=== PATIENT | female | born 1960 | race Caucasian/White ===

== ENCOUNTER 2019-11-22 12:49 | Outpatient (CLI) | payer OTHER, SELFPAY ==
--- NOTE | ~2019-11-22 | XR_ITS ---
EXAMINATION: XR chest 2V EXAM DATE: 11/22/2019 13:11 INDICATION: Cough. TECHNIQUE: Frontal and lateral projections of the chest obtained and reviewed. There is no prior anderson dy for comparison. FINDINGS: The lungs are clear. There are no pleural effusions. The cardiomediastinal silhouette is within normal limits. There is no pneumothorax suspected. Dense material within 2 lower thoracic ve rtebral bodies (methylmethacrylate), and within the colon. IMPRESSION: No acute cardiopulmonary findings. Reviewed, dictated and finalized at location A. AL WORK CASE MANAGER
== END 2019-11-22 12:50 | disposition home or self-care (01) ==
LOC: ANHIMG 12:54
PROVIDERS: PCP Internal Medicine; Visit Provider Internal Medicine
DX: R05 Cough (principal)
CPT/HCPCS: 71046

== ENCOUNTER 2020-02-14 13:03 | Outpatient (CLI) | payer OTHER, SELFPAY ==
--- NOTE | ~2020-02-14 | XR_ITS ---
EXAMINATION: XR knee RT 3V DATE: 02/14/2020 13:25 INDICATION: Right knee pain. TECHNIQUE: 3 views of right knee were obtained. COMPARISON: None. FINDINGS: Bone alignment is normal. No fracture. There is mild tricompartmental osteoarthritis. No kn ee joint effusion. IMPRESSION: 1. Mild right knee osteoarthritis. Reviewed, dictated and finalized at location A.
== END 2020-02-14 13:04 | disposition home or self-care (01) ==
LOC: ANHIMG 13:07
PROVIDERS: PCP Internal Medicine; Visit Provider Internal Medicine
DX: S89.91XA Unspecified injury of right lower leg, initial encounter (principal); M17.11 Unilateral primary osteoarthritis, right knee
CPT/HCPCS: 73562

== ENCOUNTER → 2021-06-15 13:45 | Outpatient (CLI) | payer OTHER, SELFPAY ==
--- NOTE | ~2021-06-15 | MR_ITS ---
EXAMINATION: MR thoracic spine wo con EXAM DATE: 06/15/2021 14:41 INDICATION: M54.6 - Pain in thoracic spine. TECHNIQUE: Multi-sequential, multiplanar MR images of the thoracic spine were obtained without contra st. Sagittal T1, T2, T2 fat saturation, axial T2 weighted images reviewed. Correlation is made to [facility] x-ray 11/22/2019. FINDINGS: Mild compression fractures at T11 and T12, treated with methylmethacrylate injection. The v ertebral body marrow is otherwise normal in signal intensity. The vertebral bodies are aligned in the AP dimension. Mild thoracic disc disease and facet arthropathy. The spinal cord signal intensity and intrinsic morphology is normal. There is fluid within the esophagus probably refluxed from the stom ach. IMPRESSION: 1. Treated mild compression fractures T11, T12. 2. Mild thoracic spondylosis. Reviewed, dictated and finalized at location A.
== END ==
PROVIDERS: PCP Internal Medicine; Visit Provider Internal Medicine
DX: M47.814 Spondylosis without myelopathy or radiculopathy, thoracic region (principal); M48.54XA Collapsed vertebra, not elsewhere classified, thoracic region, initial encounter for fracture
CPT/HCPCS: 72146

== ENCOUNTER → 2022-01-09 06:56 | Outpatient (CLI) | payer OTHER, SELFPAY ==
--- NOTE | ~2022-01-09 | MR_ITS ---
EXAMINATION: MR scapwilliam RT wo con DATE: 01/09/2022 08:17 INDICATION: Chronic right scapular pain TECHNIQUE: Magnetic resonance imaging (MRI) of the right scapula was performed without intravenous co ntrast. Sequences included axial T1-weighted FSE, axial T2-weighted FS FSE, coronal T1-weighted FSE, coronal T2-weighted FS FSE, sagittal T1-weighted FSE and sagittal T2-weighted FS FSE. COMPARISON: None. FINDINGS: Mild upper thoracic levoscoliosis. Normal alignment at the right shoulder. Normal bone marrow signal throughout with no reactive edema, fracture or pathologic marrow replacing process. Mild acromioclavi cular osteoarthritis. Right glenohumeral joint is normal with normal glenoid labrum. Long head of the biceps tendon appears normal although sensitivity and specificity for assessment of the shoulder str uctures is decreased relative to a smaller field of view standard MRI of the shoulder. Mild thickenin g and increased signal consistent with tendinopathy at the conjoined portion of the supraspinatus and infraspinatus tendons. Musculature at the rotator cuff and shoulder girdle appears normal including in the medial infraspinatus immediately underlying the marker indicating the region of concern. No ab normal masses or fluid collections identified. No pathologically enlarged right axillary, supraclavic ular or subpectoral lymphadenopathy. No pleural effusion. IMPRESSION: 1. 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 2. Mild upper thoracic levoscoliosis. Reviewed, dictated and finalized at location B.
== END ==
PROVIDERS: PCP Internal Medicine
DX: M89.8X1 Other specified disorders of bone, shoulder (principal); G89.29 Other chronic pain
CPT/HCPCS: 73218

== ENCOUNTER → 2022-01-09 06:57 | Outpatient (CLI) | payer OTHER, SELFPAY ==
--- NOTE | ~2022-01-09 | MMUS_ITS ---
EXAMINATION: MM diagnostic june BI w orse, US breast RT limited HISTORY: Right breast pain TECHNIQUE: Additional 3-D tomosynthesis images of the right breast were performed and synthetic 2-D i mages were generated. CAD analysis was submitted and interpreted. High resolution Limited right breas t ultrasound was performed. COMPARISON: None BREAST PARENCHYMAL COMPOSITION: Breast composition is almost entirely fatty FINDINGS: MAMMOGRAPHIC FINDINGS: There are focal asymmetries in the subareolar location of the right breast without discrete mass, arc hitectural distortion or suspicious calcifications. ULTRASOUND: Limited right breast ultrasound: Normal heterogeneous echotexture without focal solid or cystic mass. IMPRESSION: 1. No evidence for malignancy in either breast. 2. Routine yearly screening mammogram and regular clinical breast examination are recommended. BI-RADS Category 1: Negative Reviewed, dictated and finalized at location A. IMPRESSION: 1. No evidence for malignancy in either breast. 2. Routine yearly screening mammogram and regular clinical breast examination a re recommended. BI-RADS Category 1: Negative
== END ==
PROVIDERS: PCP Internal Medicine; Visit Provider Internal Medicine
DX: N64.4 Mastodynia (principal)
CPT/HCPCS: 76642; 77062; 77066; G0279

== ENCOUNTER 2022-10-04 09:11 | Outpatient (CLI) | payer OTHER, SELFPAY ==
--- NOTE | 2022-10-04 | ECG_ITS ---
Measurements Intervals [place] Rate: 60 P: 27 AK: 183 QRS: 12 QRSD: 89 T: 31 QT: 401 QTc: 402 Interpretive Statements SINUS RHYTHM LOW QRS VOLTAGE NONSPECIFIC T-WAVE ABNORMALITY ABNORMAL ECG NO PREVIOUS ECG AVAILABLE FOR COMPARISON Electronically Signed On 10-04-2022 14:52:43 FOUNDRY METALLURGIST by Murphy Suero M.D.
[2022-10-04 09:56] LABS: Alanine Aminotransferase 32 U/L (6-35); Albumin Level 4.6 g/dL (3.5-5.1); Alkaline Phosphatase 74 U/L (38-126); Anion Gap 6 mmol/L (8-16); Aspartate Amino Transferase 29 U/L (14-36); Bilirubin,Total 0.8 mg/dL (0.2-1.3); Blood Urea Nitrogen 17 mg/dL (7-17); Calcium 9.1 mg/dL (8.4-10.2); Carbon Dioxide 32 mmol/L (22-30); Chloride 99 mmol/L (98-107); Cholesterol 159 mg/dL (0-200); Estimated Glomerular Filt Rate > 60; Glucose 117 mg/dL (65-110); HDL Direct 72 mg/dL; Potassium 4.1 mmol/L (3.4-5.0); Sodium 137 mmol/L (137-145); Triglycerides 115 mg/dL (<150)
[2022-10-04 10:07] LABS: LDL Cholesterol Direct 65 mg/dL
[2022-10-04 11:02] LABS: Hemoglobin A1C 5.8 % (<5.7)
[2022-10-04 11:06] LABS: Free T4 Free Thyroxine 0.94 ng/mL (0.78-2.19)
== END 2022-10-04 09:12 | disposition home or self-care (01) ==
LOC: ANHCARD 09:12
PROVIDERS: PCP Internal Medicine
DX: R94.6 Abnormal results of thyroid function studies (principal); Z13.1 Encounter for screening for diabetes mellitus; Z79.899 Other long term (current) drug therapy; I48.0 Paroxysmal atrial fibrillation; E78.2 Mixed hyperlipidemia; I10 Essential (primary) hypertension
CPT/HCPCS: 36415; 80053; 80061; 83036; 84439; 84443; 84481; 93005

== ENCOUNTER 2022-11-08 13:38 | Outpatient (CLI) | payer OTHER, SELFPAY ==
[2022-11-08 15:16] LABS: Free T4 Free Thyroxine 1.49 ng/mL (0.78-2.19)
== END 2022-11-08 13:39 | disposition home or self-care (01) ==
LOC: ANHLAB 13:39
PROVIDERS: PCP Internal Medicine; Visit Provider Internal Medicine
DX: E03.9 Hypothyroidism, unspecified (principal)
CPT/HCPCS: 36415; 84439; 84443

== ENCOUNTER 2023-09-16 15:37 | Outpatient (CLI) | payer OTHER, SELFPAY ==
--- NOTE | ~2023-09-16 | CT_ITS ---
EXAMINATION: CTA chest PE protocol DATE: 09/16/2023 16:58 INDICATION: OTHER FORMS OF DYSPNEA TECHNIQUE: Computed tomography angiography (CTA) of the chest was performed with 100 mL Omnipaque-350 intravenous contrast timed to evaluate the pulmonary arteries. Coronal maximum intensity projection 3D-reconstructions were created by the technologist. The dose-length product (DLP) was 568.53 mGy-cm. Automated exposure control and iterative reconstruction technique were employed. COMPARISON: X-ray chest 11/22/2019. FINDINGS: Lung parenchyma and airways: Clear. Minimal apical pleural scarring. Pleura: Unremarkable. Thoracic inlet, axillae and chest wall: Unremarkable. Thoracic aorta: Normal. Mediastinum: Moderate hiatal hernia. Heart and pericardium: Normal. Coronary artery calcifications: Absent. Upper abdomen: Partially visualized, likely simple exophytic right upper pole cyst. Hyperdense subcen timeter left upper pole hemorrhagic or proteinaceous renal cyst. Bones: No acute osseous finding. Vertebroplasty cement at T11 and T12. Pulmonary arteries: Study quality: Adequate. No pulmonary emboli detected. IMPRESSION: No CT evidence of acute pulmonary embolus. No acute intrathoracic process detected. Reviewed, dictated and finalized at location K. ECTION LIEUTENANT IMPRESSION: No CT evidence of acute pulmonary embolus. No acute intrathoracic process detec arianna.
[2023-09-16 16:43] LABS: Estimated Glomerular Filt Rate > 60
== END 2023-09-16 15:38 | disposition home or self-care (01) ==
PROVIDERS: PCP Internal Medicine; Visit Provider Internal Medicine
DX: R06.09 Other forms of dyspnea (principal)
CPT/HCPCS: 71275; Q9967

== ENCOUNTER 2023-09-17 13:00 | Outpatient (CLI) | payer OTHER, SELFPAY ==
--- NOTE | ~2023-09-17 | MR_ITS ---
EXAMINATION: MR brain IAC wo/w con DATE: 09/17/2023 14:39 INDICATION: Dizziness and giddiness. Headache. Tinnitus. TECHNIQUE: Magnetic resonance imaging (MRI) of the brain, brainstem, and internal auditory canals was performed without and with 18 mL MultiHance intravenous contrast. COMPARISON: None. FINDINGS: There are scattered areas of nonspecific increased T2-weighted signal intensity in the cere bral white matter, which is within normal limits for the patient's age. There is no intracranial hemo rrhage, acute infarction, or abnormal intracranial mass lesion. The ventricles are normal in size. Th e internal auditory canals, inner ears, tympanic cavities, and mastoid air cells are normal. There is mild mucosal thickening in the paranasal sinuses. The orbits are normal. IMPRESSION: 1. Normal brain. Reviewed, dictated and finalized at location A. H INSPECTOR IMPRESSION: 1. Normal brain.
== END 2023-09-17 13:01 | disposition home or self-care (01) ==
PROVIDERS: PCP Internal Medicine; Visit Provider Internal Medicine
DX: R42 Dizziness and giddiness (principal); Z74.09 Other reduced mobility; H93.19 Tinnitus, unspecified ear
CPT/HCPCS: 70553; A9577

== ENCOUNTER 2024-05-22 07:35 | Outpatient (CLI) | payer MEDICARE, SELFPAY ==
[2024-05-22 08:24] LABS: Alanine Aminotransferase 36 U/L (6-35); Albumin Level 4.4 g/dL (3.5-5.1); Alkaline Phosphatase 70 U/L (38-126); Anion Gap 8 mmol/L (4-12); Aspartate Amino Transferase 35 U/L (14-36); Bilirubin,Total 0.9 mg/dL (0.2-1.3); Blood Urea Nitrogen 18 mg/dL (7-17); Calcium 9.4 mg/dL (8.4-10.2); Carbon Dioxide 30 mmol/L (22-30); Chloride 96 mmol/L (98-107); Cholesterol 145 mg/dL (0-200); Estimated Glomerular Filt Rate > 60; Glucose 116 mg/dL (65-110); HDL Direct 68 mg/dL; Sodium 134 mmol/L (137-145); Triglycerides 143 mg/dL (<150)
[2024-05-22 08:33] LABS: Hemoglobin A1C 5.8 % (<5.7)
[2024-05-22 08:35] LABS: LDL Cholesterol Direct 54 mg/dL
[2024-05-22 08:38] LABS: Free T4 Free Thyroxine 1.48 ng/mL (0.78-2.19)
== END 2024-05-22 07:36 | disposition home or self-care (01) ==
PROVIDERS: PCP Internal Medicine; Visit Provider Internal Medicine
DX: E03.9 Hypothyroidism, unspecified (principal); E78.2 Mixed hyperlipidemia; I10 Essential (primary) hypertension; R73.03 Prediabetes; Z79.899 Other long term (current) drug therapy
CPT/HCPCS: 36415; 80053; 80061; 83036; 84439; 84443

== ENCOUNTER 2024-11-24 09:10 | Outpatient (CLI) | payer MEDICARE, SELFPAY ==
--- OUTSIDE RECORDS SUMMARY | 2024-11-24 09:18 | XMS_ITS | Clinical Summary ---
Author Organization [facility] Address [address] [place] [address] Care Team Providers Care Lace Mender Name Role Phone Ford Mar MD Primary Care Provider Zenaida Curry Unavailable Unavailable Murphy Nguyen MD Unavailable [phone] Allergies No known active allergies Medications cholecalciferol (VITAMIN D3) 1,000 unit capsuleIndicatio ns:Vitamin D Deficiency Take 2 capsules (2,000 Units total) by mouth 2 (two) times a day 03/23/20 Active Additional Information Patient taking differently: 4,000 UnitsoralEvery morning, Indications: Vitamin D Deficiency, Informant: Self, Reported on 01/23/2024 rosuvastatin (CRESTOR) 10 mg tabletIndication s:hyperlipidemia Take 1 tablet (10 mg total) by mouth nightly CRUSH medication for 2 weeks. 03/09/20 Active Additional Information Patient taking differently:10 mg oral Nightly,(No instructions reported), Indications: hyperlipidemia, Informant: Self, Reported on 01/23/2024 multivitamin tabletIndication s:supplement Take 1 tablet by mouth 3 (three) times a week 2-3 times per week 03/23/20 Active Additional Information Patient taking differently:1 tablet oral4 times weekly, (No instructions reported), Indications: supplement, Informant: Self, Reported on 01/23/[address] (PROTONIX) 40 mg EC tabletIndication s:Treatment of Non-Bleeding Gastric Disorder Take 1 tablet (40 mg total) by mouth daily 42 tablet 12/07/19 20 029 Active Additional Information Patient taking differently:40 mg oral2 times daily, Indications: Treatment of Non-Bleeding Gastric Disorder, Informant: Self, Reported on 01/23/2024 docusate sodium (COLACE) 100 mg capsuleIndicatio ns:constipation Take 1 capsule (100 mg total) by mouth daily Active aspirin 325 mg tabletIndication s:Myocardial Reinfarction Prevention Take 1 tablet (325 mg total) by mouth every morning Active acetaminophen (TYLENOL) 500 mg tablet Take 2 tablets (1,000 mg total) by mouth every 6 (six) hours as needed for pain Active Synthroid 112 mcg tabletIndication s:hypothyroidism Take 1 tablet (112 mcg total) by mouth patent examiner before breakfast 12/21/19 23 Active clobetasoL (TEMOVATE) 0.05 % ointment Apply fingertip amount to vulva nightly. 45 g 12/23/19 24 Active Additional Information Patient taking differently: Nightly PRN, Apply fingertip amount to vulva nightly., Informant: Self, Reported on 01/23/2024 calcium carb/D3/magnesiu m/zinc (calcium carb-D3-mag [id number]) [phone] [id number]-[id number]-mg tabletIndication s:Vitamin Deficiency Take 1 tablet by mouth nightly Active folic acid (FOLVITE) 400 mcg tablet Take 1 tablet (400 mcg total) by mouth nightly Active PSYLLIUM HUSK ORALIndications: constipation Take by mouth daily Active losartan (COZAAR) 50 mg tablet Take 1 tablet (50 mg total) by mouth daily 90 tablet 3 03/26/20 24 025 Active carvediloL (COREG) 6.25 mg tablet Take 1 tablet (6.25 mg total) by mouth 2 (two) times a day 180 tablet 3 05/24/20 24 Active isosorbide mononitrate ER (IMDUR) 30 mg 24 hr tablet Take 1 tablet (30 mg total) by mouth daily 90 tablet 3 05/24/20 24 Active hydroCHLOROthiaz jose (HYDRODIURIL) 25 mg tablet Take 1 tablet (25 mg total) by mouth daily 90 tablet 3 05/24/20 24 Active nitroglycerin (NITROSTAT) 0.[address] 1 tablet (0.4 mg total) under the tongue every 5 (five) minutes as needed for chest pain May repeat dose q 5 min, up to 3 doses total 100 tablet 11 05/24/20 24 Active ezetimibe (ZETIA) 10 mg tablet Take 1 tablet (10 mg total) by mouth daily 90 tablet 3 05/28/20 24 Active Active Problems Patient Care Coordination No te Formatting of this note migh t be different from the original. This is a 57 year old female who has been experiencing dysphagia. She underwent a motility and pH study on 01/12/2018. Her pH study was normal. Her motility study demonstrated normal LES basal pressures. The post swallow residual pressures were elevated which can suggest a structural process at the GE junction. She underwent an upper endoscopy on 02/12/2018 to further evaluate her dysphagia. The endoscopy demonstrated a 2 cm hiatal hernia. The esophageal mucosa was normal. There was a benign-appearing intrinsic mild ring measuring 1.8 cm that was found 35 cm from the incisors. There was a hypertonic and puckered lower esophageal sphincter. An endo FLIP catheter was placed and fulfilled the criteria for outflow obstruction. Biopsies of the esophagus demonstrated reflux esophagitis with intestinal metaplasia. There was no dysplasia. She underwent a barium swallow study on 04/24/2018 that demonstrated a small hiatal hernia with gastroesophageal reflux as well as esophageal dysmotility. Problem Noted Date Diagnosed Date Decreased peripheral vision, bilateral 4 Dermatochalasis of both upper eyelids 01/19/2024 Assessment & Plan (01/28/2024 4:28 PM CDT): Bilateral dermatochalasis with symptomatic visual obstruction. Risks, benefits and alternatives were discussed. Risks of surgery included but were not limited to pain, infection, bleeding, scarring, eyelid asymmetry, need for additional procedures, anesthetic morbidity. Following this discussion, the patient wishes to proceed with bilateral upper eyelid blepharoplasty. We will schedule this in the near future. Urinary urgency 06/25/2023 Thoracic spine pain 12/07/2021 Obesity 12/03/2021 Coronary artery disease 05/14/2021 High risk medication use 10/11/2020 Atrial tachycardia 06/07/2020 Achalasia 02/04/2019 Overview (02/04/2019): Added automatically from request for surgery [id number] Left hip pain 08/31/2018 Chronic bilateral low back pain without sciatica 08/31/2018 NSTEMI (non-ST elevated myocardial infarction) ( [facility]) 07/11/2018 Assessment & Plan (07/14/2018 8:41 AM CDT): The etiology of her chest pain and troponin elevation are currently unclear right now. She has a high and currently stable troponin elevation with elevated NT proBNP. She has no signs of heart failure. Her story is concerning for PE, although she notably has a negative D-dimer. The pleuritic chest pain is concerning for an inflammatory process and could easily include pericarditis, pericardial effusion, or myocarditis. She also has a mild leukocytosis. This may be an extremely atypical presentation of her esophageal spasms. She will likely need a cardiac cath for ischemic evaluation pending the work up. Other more rare etiologies will be considered pending further w/u - etiology more likely demand ischemia vs NSTEMI given troponin curve, negative ESR/CRP - Trops: 1.41-->1.46-->1.20-->0.87 - [facility] 07/13: Mild plaques in RCA, nonlaminar flow. Bridging LAD. No flow impingement. - s/p ticagrelor loading 180 mg - d/c ticagrelor 90 BID for treatment of NSTEMI - d/c heparin gtt - LV ventriculogram WNL. nml EF, no WMA - cards c/s, appreciate recs - [facility] today - ESR, CRP WNL - ASA 81-> 325 home dose - JENNIFER Davis. Esophageal spasm 07/11/2018 Assessment & Plan (07/11/2018 9:57 PM CDT): She has previously undergone botox injections which. Plans for possible endoscoping myotomy. - continue home pantoprozole, verapamil, nortriptyline, gabapentin, viscous lidocaine - continue baclofen PRN for spasms Dyslipidemia 05/11/2018 Assessment & Plan (07/14/2018 8:42 AM CDT): - dose reduce ASA to 81 while on antiplatelet.--> ASA 325. - continue home zetia Hiatal hernia without gangrene and obstruction 0 04/27/2018 Overview (04/27/2018): 2 cm hiatal hernia which is demonstrated on barium swallow with leg raise and also noted on endoscopy. Not associated with substantial reflux. Tinnitus of both ears 04/27/2018 Overview (04/27/2018): Evaluated in December 2017 Other dysphagia 04/20/2018 Trochanteric bursitis 03/23/2018 Other chronic pain 03/23/2018 Bilateral hip pain 03/23/2018 Sacroiliitis 03/23/2018 Sensorineural hearing loss (SNHL) of both ears 0 12/16/2017 Hearing loss 2017 Hot flashes due to menopause 10/19/2015 Overview (01/10/2017): Hot flashes, menopausal Viral upper respiratory tract infection 10/19/19 16 Overview (01/10/2017): Viral upper respiratory illness Obstructive sleep apnea syndrome 07/27/2015 Overview (01/10/2017): Obstructive sleep apnea Assessment & Plan (07/11/2018 10:02 PM CDT): Patient is noncompliant with her home CPAP - ANTONY precautions Snoring 07/12/2015 Overview (01/10/2017): Snoring Persistent insomnia 07/12/2015 Overview (01/10/2017): Persistent disorder of initiating or maintaining sleep Paroxysmal atrial fibrillation (CMS/HCC) 015 Overview (01/10/2017): Paroxysmal atrial fibrillation Assessment & Plan (07/12/2018 1:48 PM CDT): She has had recalcitrant SVTs - continue home flecainide 100 AM; 50 PM - telemetry - NSR overnight - K>4 Mg>2 Urge incontinence of urine 03/13/2015 Post-menopausal osteoporosis 03/13/2015 Osteopenia 11/11/2013 Heart attack Overview (08/31/2018): 07/11/18 no stents or bypass Resolved Problems Problem Noted Date Diagnosed Date Resolved Date Treatment given 10/19/2015 04/27/2018 Overview (01/10/2017): Insufficient treatment with nasal CPAP Essential hypertension 07/12/201505/27 Overview (01/10/2017): Essential hypertension Assessment & Plan (07/12/2018 1:49 PM CDT): Home SBPs in 160. - continue home HCTZ 12.5 Encounters Date Type Department Care Team Description 11/09/2024 Telephone [facility] [address] [place] [address] [place] [address] Celestine Escobar MD coreg dosing 10/22/2024 Telephone [facility] [address] [place] [address] Bryant Arnold MD from Last 3 Months Immunizations Immunization Administration Dates Next Due Influenza, Quadrivalent, Spl it, Preservative Free, Intramuscular 07/11/2018,11/16/2016 Pfizer SARS-CoV-2 Monovalent Vaccination (12+ Yrs) PURPLE 07/07/2021 Surgical History Surgery Date Site/Laterality Comments OTHER SURGICAL HISTORY 10/06/1992 - 10/05/1993 D & C WRIST SURGERY 10/06/2009 - 10/05/2010 Left wrist surgery ESOPHAGOSCOPY ESOPHAGOGASTRODUODENOSCOPY 02/12/2018;2013 COLONOSCOPY 10/06/2013 - 10/05/2014 CARDIAC CATHETERIZATION 07/13/2018 TOTAL ABDOMINAL HYSTERECTOMY 10/06/1998 - 10/05/1999 Hysterectomy, total LAPAROSCOPIC HELLER MYOTOMY 10/06/2018 - 10/05/2019 ABLATION 10/06/2020 - 10/05/2021 Medical History Medical History Date Comments Hypertension Hypertension Arthritis Atrial fibrillation (CMS/HCC) (HCC) Heart attack (HCC) 07/11/[address] ents or bypass Sleep apnea HLD (hyperlipidemia) Achalasia Esophageal spasm Difficult intravenous access Chronic pain disorder Family History Medical History Relation Name Comments Depression Brother Depression; Crohn's disease Daughter 1 Crohn's dise ase; Rheum arthritis Daughter 2 Rheumatoid a rthritis; Coronary artery disease Father Daisy nary artery disease; Diabetes type II Father Diabetes me llitus type 2; Hypertension Father Hypertension; Stroke Father Family history of cerebrovascular accident (CVA) - (Added by TW Conv) Coronary artery disease Mother Daisy nary artery disease; Hypertension Mother Hypertension; Lymphoma Sister Lymphoma; Ovarian cancer Sister Diabetes type I Son Diabetes typ e I Anesthesia problems Neg Hx Relation Name Status Comments Brother Daughter 1 Daughter 2 Father Mother Sister Son Social History Tobacco Use Types Packs/Day Years Used Date Smoking Tobacco: Some Days Cigarettes 0.1 10 Started: 10/06/1998; Last attempted to quit: 2008 Cigars Smokeless Tobacco: Never Tobacco Cessation:Ready to Q uit: Not Asked; Counseling Given: Not Answered Comments:PUFF CIGAR OCC-maybe once a week Alcohol Use Standard Drinks/Week Comments Yes 14 (1 standard drink = 0.6 oz pu re alcohol) AUDIT-C Answer Date Recorded Q1: How often do you have a drink containing alcohol? 4 or more times a week 02/11/2024 Q2: How many drinks containi ng alcohol do you have on a typical day when you are drinking? 1 or 2 Q3: How often do you have si x or more drinks on one occasion? Never 02/11/2024 Personal Safety Answer Date Recorded Have you ever been in or are you currently in a harmful physical or emotional relationship or is someone making you feel afraid or unsafe? Denies 02/11/2024 Comments No Sex and Gender Information Value Date Recorded Sex Assigned at Not on file Legal Sex Female 11:58 PM STUDIO DATA ANALYST Gender Identity Not on file Sexual Orientation Not on file Obstetrics History Para Term AB IAB SAB Ectopic Multiple Livin g Live Births 4 3 3 1 1 2 2 Date Outcome GA Total Labor Labor/2nd/3rd Weight Sex Type Anes PTL Kennedi A1 A5 Name Clin 1987 Term M Vag-S pont Living 1990 Term F Vag-S pont Complications:None 1992 Term F Vag-S pont Living Complications:None Last Filed Vital Signs Vital Sign Reading Time Taken Comments Blood Pressure 137/88 05/24/2024 9:32 AM CDT Pulse 60 05/24/2024 9:32 AM CDT Temperature 36.4 C (97.5 F) 02/11/2024 1:12 PM CDT Respiratory Rate 28 02/11/2024 1:42 PM CDT Oxygen Saturation 97% 05/24/2024 9:32 AM CDT Inhaled Oxygen Concentration - - Weight 89.8 kg (198 lb) 05/24/2024 9:32 AM CDT Height 170.2 cm (5' 7 ) 05/24/2024 9:32 AM CDT Body Mass Index 31.01 05/24/2024 9:32 AM CDT Plan of Treatment Health Maintenance Due Date Last Done Comments Depression Screening 1960 Hepatitis C Screening 1960 DTaP/Tdap/Td Vaccine (1 - Tdap) 1969 Hepatitis B Screening 1976 Pneumococcal vaccine 65+ (1 of 2 - PCV) 1977 Zoster Vaccine (1 of 2) 2008 Colon Cancer Screening-Colonoscopy 10/25/2023 10/25/2013 Covid-19 Vaccine (5 - 2023-2 5 season) 2024 03/26/2022, 07/07/2021, 11/24/2020, Additional history exists Influenza Vaccine (#1) 2024 07/11/2018, 2016 Well Visit 65+ 09/01/2024 09/01/2023, 08/07, 10/28/2018 Breast Cancer Screening-Mammogram 12/09/2024 2023, 07/27/2020, 09/25/2018, Additional history exists Fall Risk Assessment 02/10/2025 02/11/2024 Osteoporosis Screening-Bone Density Scan 12/09/2025 2023, 08/06/2016, 11/17/2013 Colon Cancer Screening-CT Colonography Discontinued 10/25/2013 Colon Cancer Screening-DNA Stool Discontinued 10/25/19 14 Colon Cancer Screening-FIT Discontinued 10/25/2013 Colon Cancer Screening-Sigmoidoscopy Discontinued 10/25/2013 Goals Goal Patient Goal Type Associated Problems Recent Progress Patient-Stated? Author CCM Chronic Pain Care Plan Chronic Care Management Worsening( 8:03 AM STUDIO DATA ANALYST) Jessie Santana, RN Note: Problem: Chronic Pain Goals: 1. Minimize further functional decline 2. Maximize quality of life 3. Control pain Strategies: - Activity/exercise program recommendation - Conservative stepwise pain medicine strategy with multi-disciplinary approach - Recommend healthy lifestyle strategies and compensatory methods as needed Medical Devices Implanted Type Area Transmission Tester Device Identifier Shelf Expiration Date Model / Serial / Lot Screw Left: Wrist [employer] [id number] System 6-12fr Mvp Venous Closure Vascade - [id number] Implanted:Qty: 1 on 05/24/2021 by Keshav Morgan MD PhD at [facility] [employer] 02/08/2023 800-612C-[id number] [id number] / / [id number] [id number] [employer] [id number] System 6-12fr Mvp Venous Closure Vascade - [id number] Implanted:Qty: 1 on 05/24/2021 by Keshav Morgan MD PhD at [facility] [employer] 01/31/2023 800-612C-1 [id number] / / [id number] [id number] [employer] [id number] System 6-12fr Mvp Venous Closure Vascade - [id number] Implanted:Qty: 1 on 05/24/2021 by Keshav Morgan MD PhD at [facility] [employer] 01/31/2023 800-612C-1 [id number] / / [id number] 5C [employer] [id number] Device Closure Vascade Od5 Fr Femoral Artery - [id number] Implanted:Qty: 1 on 05/24/2021 by Keshav Morgan MD PhD at [facility] [employer] 02/21/2023 [id number] / / [id number] Procedures Procedure Name Priority Date/Time Associated Diagnosis Comments SCREENING MAMMOGRAM BILATERAL W RAPHAEL Schedule Routine, Read Routine (OP Routine) 2023 10:41 AM STUDIO DATA ANALYST Encounter for screening mammogram for malignant neoplasm of breast DEXA AXIAL SKELETON BONE DENSITY 1 OR MORE SITES Schedule Routine, Read Routine (OP Routine) 2023 10:27 AM STUDIO DATA ANALYST Osteoporosis, unspecified osteoporosis type, unspecified pathological fracture presence COLONOSCOPY REPORT 10/25/2013 from Last 3 Months or Most Recently Relevant to Health Maintenance Results * SCREENING MAMMOGRAM BILATERAL W RAPHAEL (2023 10:41 AM STUDIO DATA ANALYST) Anatomical Region Laterality Modality Breast Bilateral Mammography Impressions 2023 10:46 AM STUDIO DATA ANALYST BI-RADS ATLAS category (overall): 1 - Negative There is no mammographic evidence of malignancy. A 1 year screening mammogram is recommended. The patient has been or will be contacted. We recommend annual screening mammography for women at average risk of breast cancer beginning at age 40, based on guidelines of the [employer] (ACR Practice Parameter for the Performance of Screening and Diagnostic Mammography) and [employer]. For women with and elevated risk of breast cancer, please refer to the ACR Practice Parameter for specific screening recommendations. The patient will be entered into a reminder system with a target due date of 1 year for her next screening exam. Narrative 2023 10:46 AM STUDIO DATA ANALYST SCREENING MAMMOGRAM BILATERAL W RAPHAEL: 12/10/23 The study was acquired using full field digital technology and interpreted from soft copy. 2D digital mammographic views, as well as 3D digital tomosynthesis were performed in the CC and MLO projections. CLINICAL: Encounter for screening mammogram for malignant neoplasm of breast. No relevant medical history has been documented for this patient. No known family history of breast cancer. COMPARISONS: 07/27/2020 Screening Mammogram Bilateral W Raphael 09/25/2018 Screening Mammogram Bilateral W Raphael 08/06/2016 Screening Mammogram BREAST TISSUE: The breasts have scattered areas of fibroglandular density. FINDINGS: No suspicious masses, suspicious calcifications, or other suspicious findings are seen within either breast. There has been no suspicious change. us Susanna Abimbola Marr MD IMG MAMMO PROC EDURES Final Result * Dexa Axial Skeleton Bone Density 1 Or 2 Site (2023 10:27 AM STUDIO DATA ANALYST) Anatomical Region Laterality Modality Body N/A Mammography 2023 8:27 PM STUDIO DATA ANALYST Narrative 2023 8:28 PM STUDIO DATA ANALYST EXAM DESCRIPTION: DEXA AXIAL SKELETON BONE DENSITY 1 OR MORE SITES REASON FOR STUDY: 62 y/o year old F with given history of: Osteoporosis Postmenopausal Transmission Tester/Model: [employer] A (S/N [id number]) CLINICAL INFORMATION: Current height: 67 inches Maximum height: 68 inches Weight: 200 pounds Risk factors: Postmenopausal, prior hip/vertebral fracture, adult fracture, smoking history COMPARISON: None available FINDINGS: AP LUMBAR SPINE L1-L4: Total BMD is 0.838 g/cm2 T-score is -1.9 LEFT HIP: Total BMD is 0.852 g/cm2 T-score is -0.7 Femoral neck BMD is 0.625 g/cm2 T-score is -2.0 FRAX: 10 year risk for a major osteoporotic fracture is 17 %, 10 year risk for a hip fracture is 3.9 % IMPRESSION: Low Bone Mass. REFERENCE: Bone mineral density: T-Score: Normal (T-score above or = -1.0) Low bone mass (T-score between -1.0 and -2.5) replaces the previously used term osteopenia Osteoporosis (T-score = or below -2.5) Z-Score: Within the expected range for age (Z-score above -2.0) Below the expected range for age (Z-score is -2.0 or below) Please see below follow up recommendations. Medical evaluation for secondary causes of low bone mineral density may be appropriate. FRAX is a World Health Organization validated fracture risk assessment tool that calculates a person's 10 year probability of a major osteoporosis related fracture and hip fracture. According to the National Osteoporosis Foundation guidelines, postmenopausal women and men age 50 or older with low bone mass and a 10 year probability of a major osteoporosis related fracture = or greater than 20% or a 10 year probability of a hip fracture = or greater than 3% should be considered for pharmacological treatment for the prevention of osteoporosis. For further information, including treatment recommendations, please refer to the 2019 ISCD Official Positions (http://www.iscd.org) and the NOF's Clinician's Guide to Prevention and Treatment of Osteoporosis (http://www.nof.org/professionals/clinical-guidelines) THIS IS AN ELECTRONICALLY VERIFIED FINAL REPORT 2023 8:28 PM - Electronically signed by Murphy Sanchez M.D. MF: DONTA Report ID: [id number] Reading Location: [address] Note Murphy Sanchez MD - 2023 EXAM DESCRIPTION: DEXA AXIAL SKELETON BONE DENSITY 1 OR MORE SITES REASON FOR STUDY: 62 y/o year old F with given history of:Osteoporosis Postmenopausal Transmission Tester/Model: [employer] A (S/N [id number]) CLINICAL INFORMATION: Current height: 67 inches Maximum height: 68 inches Weight: 200 pounds Risk factors: Postmenopausal, prior hip/vertebral fracture, adultfracture, smoking history COMPARISON: None available FINDINGS: AP LUMBAR SPINE L1-L4: Total BMD is 0.838 g/cm2 T-score is -1.9 LEFT HIP: Total BMD is 0.852 g/cm2 T-score is -0.7 Femoral neck BMD is 0.625 g/cm2 T-score is -2.0 FRAX: 10 year risk for a major osteoporotic fracture is 17 %, 10 year risk for ahip fracture is 3.9 % IMPRESSION: Low Bone Mass. REFERENCE: Bone mineral density: T-Score: Normal (T-score above or = -1.0) Low bone mass (T-score between -1.0 and -2.5) replaces thepreviously used term osteopenia Osteoporosis (T-score = or below -2.5) Z-Score: Within the expected range for age (Z-score above -2.0) Below the expected range for age (Z-score is -2.0 or below) Please see below follow up recommendations. Medical evaluation forsecondary causes of low bone mineral density may be appropriate. FRAX is a World Health Organization validated fracture risk assessmenttool that calculates a person's 10 year probability of a major osteoporosisrelated fracture and hip fracture. According to the National OsteoporosisFoundation guidelines, postmenopausal women and men age 50 or older with low bonemass and a 10 year probability of a major osteoporosis related fracture = or greater than 20% or a 10 year probability of a hip fracture = or greaterthan 3% should be considered for pharmacological treatment for the preventionof osteoporosis. For further information, including treatment recommendations, please referto the 2019 ISCD Official Positions (http://www.iscd.org) and the NOF's Clinician's Guide to Prevention and Treatment of Osteoporosis (http://www.nof.org/professionals/clinical-guidelines) THIS IS AN ELECTRONICALLY VERIFIED FINAL REPORT 2023 8:28 PM - Electronically signed by Murphy Sanchez M.D. MF: DONTA Report ID: [id number] Reading Location: [place] [address] Susannaab Marr MD IMG DXA PROCED URES Final Result * COLONOSCOPY REPORT (10/25/2013) Anatomical Region Laterality Modality Other Narrative 10/25/2013 Ordered by an unspecified provider. Historical Provider GI PROCEDURE ORDERABLES F inal Result from Last 3 Months or Most Recently Relevant to Health Maintenance Insurance MEDICARE [facility] H[facility]/PPO Address: [address] [address] [place] [address] [facility] CHOICE PLUS [facility]/PPO Address: [address] [address] [place] [address] MEDICARE [facility] Advance Directives For more information, please contact: [phone] * Full Code (Latest Code Status on File) Date Activated Date Inactivated Comments 12/07/2019 7:31 AM 12/07/2019 1:28 PM * Full Code Date Activated Date Inactivated Comments 03/08/2019 6:40 PM 03/09/2019 10:19 PM * Full Code Date Activated Date Inactivated Comments 07/11/2018 8:02 PM 07/14/2018 4:16 PM Healthcare Agents on File Name Relationship Healthcare Agent [facility] Communication Brock Estrada Spouse Health Care Agent Care Teams Lace Mender Relationship Specialty Start Date End Date Ford Mar MD [address] [employer] [facility] [place], [place] [address] PCP - General 01/03/17 Zenaida Curry Physical Therapist Physical Therapy 03/17/18 Murphy Nguyen MD Anesthesiologist Pain Management 03/17/18
--- OUTSIDE RECORDS SUMMARY | 2024-11-24 09:18 | XMS_ITS | Referral Summary ---
Author Organization [facility] Address [address] [place] [address] Care Team Providers Care Cloth Checker Name Role Phone Ford Mar MD Primary Care Provider [phone] Zenaida Curry Unavailable Unavailable Murphy Nguyen MD Unavailable [phone] Encounters Date Type Department Care Team Description 11/09/2024 Telephone [facility] [address] [facility] Advanced Medicine 8th [place] [address] [place] [address] Celestine Escobar MD coreg dosing 10/22/2024 Telephone [facility] Ophthalmology [address] [place] [address] Bryant Arnold MD from Last 3 Months Allergies No known active allergies Medications cholecalciferol [...] a week 2-3 times per week 03/23/20 19 Active Additional Information Patient taking differently:1 tablet [...] 1 tablet (112 mcg total) by mouth manufacturing engineer paint before breakfast 12/21/19 23 Active clobetasoL (TEMOVATE) 0.05 % ointment Apply fingertip amount to vulva nightly. 45 g 12/23/19 24 Active Additional Information Patient taking differently: Nightly PRN, Apply fingertip amount to vulva nightly., Informant: Self, Reported on 01/23/2024 calcium carb/D3/magnesiu m/zinc (calcium carb-D3-mag puu46-kbev) [phone] gk-byom-kl-mg tabletIndication s:Vitamin Deficiency Take 1 tablet by [...] times a day 180 tablet 3 05/24/20 Active isosorbide mononitrate ER (IMDUR) 30 mg [...] up to 3 doses total 100 tablet 05/24/20 Active ezetimibe (ZETIA) 10 mg tablet Take [...] (02/04/2019): Added automatically from request for surgery Left hip pain 08/31/2018 Chronic bilateral low back pain without sciatica 08/31/2018 NSTEMI (non-ST elevated myocardial infarction) ( [facility]) 07/11/2018 Assessment & Plan (07/14/2018 8:41 AM [...] curve, negative ESR/CRP - Trops: 1.41-->1.46-->1.20-->0.87 - [facility] 07/13: Mild plaques in RCA, nonlaminar flow. Bridging LAD. No flow impingement. - s/p ticagrelor loading 180 mg - d/c ticagrelor 90 BID for treatment of NSTEMI - d/c heparin gtt - LV ventriculogram WNL. nml EF, no WMA - cards c/s, appreciate recs - [facility] today - ESR, CRP WNL - [...] in 160. - continue home HCTZ 12.5 Immunizations Immunization Administration Dates Next Due Influenza, Quadrivalent, Spl it, Preservative Free, Intramuscular 07/11/2018,11/16/2016 Pfizer SARS-CoV-2 Monovalent Vaccination (12+ Yrs) PURPLE 07/07/2021 Social History Tobacco Use Types Packs/Day Years [...] on file Legal Sex Female 11:58 PM CMO Gender Identity Not on file Sexual Orientation Not on file Last Filed Vital Signs Vital Sign Reading [...] 05/24/2024 9:32 AM CDT Plan of Treatment Not on file Goals Goal Patient Goal Type Associated Problems Recent Progress Patient-Stated? Author CCM Chronic Pain Care Plan Chronic Care Management Worsening( 8:03 AM CMO) Jessie Santana, RN Note: Problem: Chronic Pain Goals: 1. Minimize further functional decline 2. Maximize quality of life 3. Control pain Strategies: - Activity/exercise program recommendation - Conservative stepwise pain medicine strategy with multi-disciplinary approach - Recommend healthy lifestyle strategies and compensatory methods as needed Medical Devices Implanted Type Area Zinc Furnace Charger Device Identifier Shelf Expiration Date Model / Serial / Lot Screw Left: Wrist [employer] [id number] System 6-12fr Mvp Venous Closure Vascade - [id number] Implanted:Qty: 1 on 05/24/2021 by Keshav Morgan MD PhD at [facility] [employer] 02/08/2023 800-612C-1 [id number] / / [id number] [employer] [id number] System 6-12fr Mvp Venous Closure Vascade - [id number] Implanted:Qty: 1 on 05/24/2021 by Keshav Morgan MD PhD at [facility] [employer] [facility] 01/31/2023 800-612C-1 [id number] / / [id number] [employer] [id number] System 6-12fr Mvp Venous Closure Vascade - [id number] Implanted:Qty: 1 on 05/24/2021 [facility] 01/31/2023 800-612C-1 [id number] / / [id number] [employer] [id number] Device Closure Vascade Od5 Fr Femoral Artery - [id number] Implanted:Qty: 1 on 05/24/2021 by [facility]eshav [facility] 02/21/2023 [id number] / / [id number] Procedures Procedure Name Priority Date/Time Associated Diagnosis Comments SCREENING MAMMOGRAM BILATERAL W RAPHAEL Schedule Routine, Read Routine (OP Routine) 2023 10:41 AM CMO Encounter for screening mammogram for malignant neoplasm of breast DEXA AXIAL SKELETON BONE DENSITY 1 OR MORE SITES Schedule Routine, Read Routine (OP Routine) 2023 10:27 AM CMO Osteoporosis, unspecified osteoporosis type, unspecified pathological fracture presence COLONOSCOPY REPORT 10/25/2013 from Last 3 Months or Most Recently Relevant to Health Maintenance Results * SCREENING MAMMOGRAM BILATERAL W RAPHAEL (2023 10:41 AM CMO) Anatomical Region Laterality Modality Breast Bilateral Mammography Impressions 2023 10:46 AM CMO BI-RADS ATLAS category (overall): 1 - Negative There is no mammographic evidence of malignancy. A 1 year screening mammogram is recommended. The patient has been or will be contacted. We recommend annual screening mammography for women at average risk of breast cancer beginning at age 40, based on guidelines of the [place] [employer] (ACR Practice Parameter for the Performance of Screening and Diagnostic Mammography) and [place] [employer]. For women with and elevated risk of breast cancer, please refer to the ACR Practice Parameter for specific screening recommendations. The patient will be entered into a reminder system with a target due date of 1 year for her next screening exam. Narrative 2023 10:46 AM CMO SCREENING MAMMOGRAM BILATERAL W RAPHAEL: 12/10/23 The [...] suspicious change. us Susanna Abimbola Marr MD [facility] [place] ED[place] Final Result * Dexa Axial Skeleton Bone Density 1 Or 2 Site (2023 10:27 AM CMO) Anatomical Region Laterality Modality Body N/A Mammography 2023 8:27 PM CMO Narrative 2023 8:28 PM CMO EXAM DESCRIPTION: DEXA AXIAL SKELETON BONE DENSITY 1 OR MORE SITES REASON FOR STUDY: 62 y/o year old F with given history of: Osteoporosis Postmenopausal Zinc Furnace Charger/Model: Referrizer A (S/N [id number]) CLINICAL INFORMATION: Current height: 67 inches Maximum [...] Murphy Sanchez M.D. MF: DONTA Report ID: [id number] Reading Location: [id number] Procedure Note Murphy Sanchez MD - 2023 EXAM DESCRIPTION: DEXA AXIAL SKELETON BONE DENSITY 1 OR MORE SITES REASON FOR STUDY: 62 y/o year old F with given history of:Osteoporosis Postmenopausal Zinc Furnace Charger/Model: Referrizer A (S/N [id number]) CLINICAL INFORMATION: Current height: 67 inches Maximum [...] Murphy Sanchez M.D. MF: DONTA Report ID: [id number] Reading Location: [place] [address] us Susanna Abimbola Marr MD IMG DXA PROCED URES Final Result * COLONOSCOPY REPORT (10/25/2013) Anatomical Region Laterality Modality Other Narrative 10/25/2013 Ordered by an unspecified provider. us Historical Provider GI PROCEDURE ORDERABLES F inal Result from Last 3 Months or Most Recently Relevant to Health Maintenance Insurance MEDICARE [facility] [address] [place] [id number] [facility] CHOICE PLUS MEDICARE [facility] Advance Directives For more information, please contact: [phone] * Full Code (Latest Code Status on File) Date Activated Date Inactivated Comments 12/07/2019 7:31 AM 12/07/2019 1:28 PM * Full Code Date Activated Date Inactivated Comments 03/08/2019 6:40 PM 03/09/2019 10:19 PM * Full Code Date Activated Date Inactivated Comments 07/11/2018 8:02 PM 07/14/2018 4:16 PM Healthcare Agents on File Name Relationship Healthcare Agent Relationshi p Communication Brock Levine Spouse Health Care Agent Care Teams Cloth Checker Relationship Specialty Start Date End Date Ford Mar MD [address] [place] [address] PCP - General 01/03/17 Zenaida Curry Physical Therapist Physical Therapy 03/17/18 Murphy Nguyen MD Anesthesiologist Pain Management 03/17/18
--- OUTSIDE RECORDS SUMMARY | 2024-11-24 09:18 | XMS_ITS | Encounter Summary ---
Author Organization [facility] Healthcare Address [address] [place] [address] Care Team Providers Care Shoe Maker Name Role Phone Ford Mar MD Primary Care Provider [phone] Zenaida Curry Unavailable Unavailable Murphy Nguyen MD Unavailable [phone] Encounter Details Date Type Department Care Team (Late st Contact Info) Description 03/09/2019 Documentation [facility] Case Management [address] [place] [id number] Yohana Avitia RN Social History Tobacco Use Types Packs/Day Years Used Date Smoking Tobacco: Former Cigarettes 0.3 10 1 999 - 2009 Smokeless Tobacco: Never Alcohol Use Standard Drinks/Week Comments Yes 14 (1 standard drink = 0.6 oz pu re alcohol) Comments No Sex and Gender Information Value Date Recorded Sex Assigned at Not on file Legal Sex Female 11:58 PM PHYSICAL THERAPY AIDES TEACHER Gender Identity Not on file Sexual Orientation Not on file documented as of this encounter Miscellaneous Notes * Plan of Care - Yohana Avitia RN - 03/09/2019 1:14 PM CDT Attempted to interview x2 off the floor. CM will continue to follow. Add 03/09/19 documented in this encounter Plan of Treatment Not on file documented as of this encounter Visit Diagnoses Not on filedocumented in this encounter Additional Health Concerns Infection Onset Date Last Indicated Resolved Time COVID: Suspected 05/05/2020 05/05/2020 05/07/2020 5:03 AM CDT Respiratory Infection ([place]), contact + droplet Comment:Automatically added due to negative COVID-19 result. 05/07/2020 05/07/2020 05/21/2020 3:0 5 AM CDT COVID: Suspected 09/11/2023 09/11/2023 09/11/2023 12:05 PM PHYSICAL THERAPY AIDES TEACHER documented as of this encounter Care Teams Shoe Maker Relationship Specialty Start Date End Date Ford Mar MD [address] [place] [address] PCP - General 01/03/17 Zenaida Curry Physical Therapist Physical Therapy 03/17/18 Murphy Nguyen MD Anesthesiologist Pain Management 03/17/18 documented as of this encounter
--- OUTSIDE RECORDS SUMMARY | 2024-11-24 09:18 | XMS_ITS | Encounter Summary ---
Author Organization [facility] Address [address] [place] [address] Phone Care Team Providers Care Painting Manager Name Role Phone Ford Mar MD Primary Care Provider [phone] Zenaida Curry Unavailable Unavailable Murphy Nguyen MD Unavailable [phone] Encounter Details Date Type Department Care Team (Latest Contact Info) Description 10/04/2022 Orders Only [facility] Scanning, Provider Social History Tobacco Use Types Packs/Day Years Used Date Smoking Tobacco: Some Days Cigarettes 0.1 10 Started: 10/06/1998; Last attempted to quit: 2008 Cigars Smokeless Tobacco: Never Comments:PUFF CIGAR OCC-mayb e once a week Alcohol Use Standard Drinks/Week Comments Yes 14 (1 standard drink = 0.6 oz pu re alcohol) AUDIT-C Answer Date Recorded Q1: How often do you have a drink containing alc ohol? 2-3 times a week 12/07/2021 Q2: How many drinks containi ng alcohol do you have on a typical day when you are drinking? 3 or 4 12/07/2021 Q3: How often do you have si x or more drinks on one occasion? Less than monthly 12/07/2021 Comments No Sex and Gender Information Value Date Recorded Sex Assigned at Not on file Legal Sex Female 11:58 PM FELT CUTTING MACHINE OPERATOR Gender Identity Not on file Sexual Orientation Not on file documented as of this encounter Plan of Treatment Not on file documented as of this encounter Goals Goal Patient Goal Type Associated Problems Recent Progress Patient-Stated? Author CCM Chronic Pain Care Plan Chronic Care Management Worsening( 8:03 AM FELT CUTTING MACHINE OPERATOR) Jessie Santana RN Note: Problem: Chronic Pain Goals: 1. Minimize further functional decline 2. Maximize quality of life 3. Control pain Strategies: - Activity/exercise program recommendation - Conservative stepwise pain medicine strategy with multi-disciplinary approach - Recommend healthy lifestyle strategies and compensatory methods as needed documented as of this encounter Procedures Procedure Name Priority Date/Time Associated Diagnosis Comments CARDIOLOGY DOCUMENT SCAN 10/04/2022 documented in this encounter Results * CARDIOLOGY DOCUMENT SCAN (10/04/2022) Anatomical Region Laterality Modality Other us Provider Scanning [facility] PROCEDURES Final Result documented in this encounter Visit Diagnoses Not on filedocumented in this encounter Additional Health Concerns Infection Onset Date Last Indicated Resolved Time COVID: Suspected 09/11/2023 09/11/2023 09/11/2023 12:05 PM FELT CUTTING MACHINE OPERATOR documented as of this encounter Care Teams Painting Manager Relationship Specialty Start Date End Date Ford Mar MD [address] [facility] [address] [place] [address] PCP - General 01/03/17 Zenaida Curry Physical Therapist Physical Therapy 03/17/18 Murphy Nguyen MD Anesthesiologist Pain Management 03/17/18 documented as of this encounter
--- OUTSIDE RECORDS SUMMARY | 2024-11-24 09:18 | XMS_ITS | Encounter Summary ---
Author Organization [facility] Healthcare Address [address] [place] [address] Care Team Providers Care Architectural Engineering Teacher Name Role Phone Ford Mar MD Primary Care Provider [phone] Zenaida Curry Unavailable Unavailable Murphy Nguyen MD Unavailable [phone] Reason for Visit * Reason Onset Date Comments mri order 01/02/2022 Encounter Details Date Type Department Care Team (Late st Contact Info) Description 01/02/2022 Telephone [facility] [address] [facility] Advanced Medicine [address] [place] [address] Amelia Winkler MD [address] [place] [address] mri order Social History Tobacco Use Types Packs/Day Years [...] on file Legal Sex Female 11:58 PM QUALITY CONTROL SPECIALIST Gender Identity Not on file Sexual Orientation Not on file documented as of this encounter Plan of Treatment Not on file documented as of this encounter Goals Goal Patient Goal Type Associated Problems Recent Progress Patient-Stated? Author CCM Chronic Pain Care Plan Chronic Care Management Worsening( 8:03 AM QUALITY CONTROL SPECIALIST) No Jessie Javier RN Note: Problem: Chronic Pain Goals: 1. Minimize further functional decline 2. Maximize quality of life 3. Control pain Strategies: - Activity/exercise program recommendation - Conservative stepwise pain medicine strategy with multi-disciplinary approach - Recommend healthy lifestyle strategies and compensatory methods as needed documented as of this encounter Visit Diagnoses Not on filedocumented in this encounter Additional Health Concerns Infection Onset Date Last Indicated Resolved Time COVID: Suspected 09/11/2023 09/11/2023 09/11/2023 12:05 PM QUALITY CONTROL SPECIALIST documented as of this encounter Care Teams Architectural Engineering Teacher Relationship Specialty Start Date End Date Ford Mar MD [address] [facility] [address] [place] [address] PCP - General 01/03/17 Zenaida Curry Physical Therapist Physical Therapy 03/17/18 Murphy Nguyen MD Anesthesiologist Pain Management 03/17/18 documented as of this encounter
--- OUTSIDE RECORDS SUMMARY | 2024-11-24 09:18 | XMS_ITS | Encounter Summary ---
Author Organization [facility] Address [address] [place] [address] Phone Care Team Providers Care Strategic Insights Lead Name Role Phone Ford Mar MD Primary Care Provider Zenaida Curry Unavailable Unavailable Murphy Nguyen MD Unavailable [phone] Encounter Details Date Type Department Care Team (Latest Contact Info) Description 01/09/2022 Orders Only [facility] Scanning, Provider Social [...] on file Legal Sex Female 11:58 PM PLASTIC INJECTION MOLD MAKER Gender Identity Not on file Sexual Orientation Not on file documented as of this encounter Plan of Treatment Not on file documented as of this encounter Goals Goal Patient Goal Type Associated Problems Recent Progress Patient-Stated? Author CCM Chronic Pain Care Plan Chronic Care Management Worsening( 8:03 AM PLASTIC INJECTION MOLD MAKER) Jessie Santana RN Note: Problem: Chronic Pain Goals: 1. Minimize further functional decline 2. Maximize quality of life 3. Control pain Strategies: - Activity/exercise program recommendation - Conservative stepwise pain medicine strategy with multi-disciplinary approach - Recommend healthy lifestyle strategies and compensatory methods as needed documented as of this encounter Procedures Procedure Name Priority Date/Time Associated Diagnosis Comments SCAN - LABS 01/09/2022 documented in this encounter Results * SCAN - LABS (01/09/2022) us Provider Scanning Final Result documented in this encounter Visit Diagnoses Not on filedocumented in this encounter Additional Health Concerns Infection Onset Date Last Indicated Resolved Time COVID: Suspected 09/11/2023 09/11/2023 09/11/2023 12:05 PM PLASTIC INJECTION MOLD MAKER documented as of this encounter Care Teams Strategic Insights Lead Relationship Specialty Start Date End Date Ford Mar MD [address] [place] [address] PCP - General 01/03/17 Zenaida Curry Physical Therapist Physical Therapy 03/17/18 Murphy Nguyen MD Anesthesiologist Pain Management 03/17/18 documented as of this encounter
--- OUTSIDE RECORDS SUMMARY | 2024-11-24 09:18 | XMS_ITS | Encounter Summary ---
Author Organization [facility] Address [address] [place] [address] Phone Care Team Providers Care Ecmo Specialist Name Role Phone Ford Mar MD Primary Care Provider [phone] Zenaida Curry Unavailable Unavailable Murphy Nguyen MD Unavailable [phone] Encounter Details Date Type Department Care Team (Late st Contact Info) Description 01/06/2024 Orders Only [facility] Ophthalmology [address] [facility] 6th [place] [address] Bryant Arnold MD [address] [facility] [address] [place] [address] Ptosis of eyelid, unspecified laterality (Primary Dx) Social History Tobacco Use Types Packs/Day Years [...] alcohol? 4 or more times a week 09/01/2023 Q2: How many drinks containi ng alcohol do you have on a typical day when you are drinking? 1 or 2 11/27/202 3 Q3: How often do you have si x or more drinks on one occasion? Never 09/01/2023 Personal Safety Answer Date Recorded Have you ever been in or are you currently in a harmful physical or emotional relationship or is someone making you feel afraid or unsafe? Denies 09/11/2023 Comments No Sex and Gender Information Value Date Recorded Sex Assigned at Not on file Legal Sex Female 11:58 PM ARCHITECTURE PROFESSOR Gender Identity Not on file Sexual Orientation Not on file documented as of this encounter Plan of Treatment Not on file documented as of this encounter Goals Goal Patient Goal Type Associated Problems Recent Progress Patient-Stated? Author CCM Chronic Pain Care Plan Chronic Care Management Worsening( 8:03 AM ARCHITECTURE PROFESSOR) No Jessie Javier RN Note: Problem: Chronic Pain Goals: 1. Minimize further functional decline 2. Maximize quality of life 3. Control pain Strategies: - Activity/exercise program recommendation - Conservative stepwise pain medicine strategy with multi-disciplinary approach - Recommend healthy lifestyle strategies and compensatory methods as needed documented as of this encounter Procedures Procedure Name Priority Date/Time Associated Diagnosis Comments GVF LIMITED/PTOSIS - OU - BOTH EYES Routine 01/06/2024 11:35 AM CDT Ptosis of eyelid, unspecified laterality documented in this encounter Results * GVF Limited/Ptosis - OU - Both Eyes (01/06/2024 11:35 AM CDT) Anatomical Region Laterality Modality Head Visual Field Narrative 01/28/2024 4:26 PM CDT Right Eye Fixation was good. Cooperation was good. Reliability was good. Left Eye Fixation was good. Cooperation was good. Reliability was good. Notes Findings: Right eye (OD): Untaped superior meridian at 16 degrees and taped superior meridian at 41 degrees. Left eye (OS): Untaped superior meridian at 17 degrees and taped superior meridian at 46 degrees. Impression: Significant improvement in superior visual field with elevation bilaterally. Bryant Arnold MD OPH VISUAL FIELD Final Result documented in this encounter Visit Diagnoses Diagnosis Ptosis of eyelid, unspecified laterality- Primary documented in this encounter Care Teams Ecmo Specialist Relationship Specialty Start Date End Date Ford Mar MD [address] [facility] [address] [place] [address] PCP - General 01/03/17 Zenaida Curry Physical Therapist Physical Therapy 03/17/18 Murphy Nguyen MD Anesthesiologist Pain Management 03/17/18 documented as of this encounter
--- OUTSIDE RECORDS SUMMARY | 2024-11-24 09:18 | XMS_ITS | Encounter Summary ---
Author Organization [facility] Address [address] [place] [address] Phone Care Team Providers Care Community Service Worker Name Role Phone Ford Mar MD Primary Care Provider [phone] Zenaida Curry Unavailable Unavailable Murphy Nguyen MD Unavailable [phone] Encounter Details Date Type Department Care Team (Latest Contact Info) Description 04/05/2022 Orders Only [facility] Scanning, Provider Social [...] on file Legal Sex Female 11:58 PM WEATHER CLERK Gender Identity Not on file Sexual Orientation Not on file documented as of this encounter Plan of Treatment Not on file documented as of this encounter Goals Goal Patient Goal Type Associated Problems Recent Progress Patient-Stated? Author CCM Chronic Pain Care Plan Chronic Care Management Worsening( 8:03 AM WEATHER CLERK) Jessie Santana RN Note: Problem: Chronic Pain Goals: 1. Minimize further functional decline 2. Maximize quality of life 3. Control pain Strategies: - Activity/exercise program recommendation - Conservative stepwise pain medicine strategy with multi-disciplinary approach - Recommend healthy lifestyle strategies and compensatory methods as needed documented as of this encounter Procedures Procedure Name Priority Date/Time Associated Diagnosis Comments SCAN - LABS 04/05/2022 documented in this encounter Results * SCAN - LABS (04/05/2022) us Provider Scanning Final Result documented in this encounter Visit Diagnoses Not on filedocumented in this encounter Additional Health Concerns Infection Onset Date Last Indicated Resolved Time COVID: Suspected 09/11/2023 09/11/2023 09/11/2023 12:05 PM WEATHER CLERK documented as of this encounter Care Teams Community Service Worker Relationship Specialty Start Date End Date Ford Mar MD [address] [place] [address] PCP - General 01/03/17 Zenaida Curry Physical Therapist Physical Therapy 03/17/18 Murphy Nguyen MD Anesthesiologist Pain Management 03/17/18 documented as of this encounter
[2024-11-24 11:17] LABS: Alanine Aminotransferase 34 U/L (6-35); Albumin Level 4.3 g/dL (3.5-5.1); Alkaline Phosphatase 81 U/L (38-126); Anion Gap 8 mmol/L (4-12); Aspartate Amino Transferase 30 U/L (14-36); Bilirubin,Total 0.7 mg/dL (0.2-1.3); Blood Urea Nitrogen 12 mg/dL (7-17); Calcium 9.3 mg/dL (8.4-10.2); Carbon Dioxide 30 mmol/L (22-30); Chloride 99 mmol/L (98-107); Cholesterol 123 mg/dL (0-200); Estimated Glomerular Filt Rate > 60; Glucose 110 mg/dL (65-110); HDL Direct 56 mg/dL; Potassium 4.5 mmol/L (3.4-5.0); Sodium 137 mmol/L (137-145); Triglycerides 186 mg/dL (<150)
[2024-11-24 11:29] LABS: LDL Cholesterol Direct 49 mg/dL
[2024-11-24 11:55] LABS: Free T4 Free Thyroxine 1.34 ng/dL (0.78-2.19)
[2024-11-24 13:13] LABS: Hemoglobin A1C 5.8 % (<5.7)
== END 2024-11-24 09:11 | disposition home or self-care (01) ==
PROVIDERS: PCP Internal Medicine; Referring Provider Internal Medicine Cardiovascular Disease; Visit Provider Internal Medicine
DX: R73.03 Prediabetes (principal); E03.9 Hypothyroidism, unspecified; I10 Essential (primary) hypertension; E78.2 Mixed hyperlipidemia
CPT/HCPCS: 36415; 80053; 80061; 83036; 84439; 84443

== ENCOUNTER 2025-01-14 08:15 | Outpatient (CLI) | payer MEDICARE, SELFPAY ==
--- OUTSIDE RECORDS SUMMARY | 2025-01-14 08:26 | XMS_ITS | Encounter Summary ---
Author Organization [facility] Address [address] [place] [address] Phone Care Team Providers Care Property Loss Insurance Claim Adjuster Name Role Phone Ford Mar MD Primary Care Provider [phone] Zenaida Curry Unavailable Unavailable Murphy Nguyen MD Unavailable [phone] Encounter Details Date Type Department Care Team (Latest Contact Info) Description 10/04/2022 Orders Only [facility] Scanning, Provider Social History Tobacco Use [...] on file Legal Sex Female 11:58 PM ARMHOLE RAISER LOCKSTITCH Gender Identity Not on file Sexual Orientation Not on file documented as of this encounter Plan of Treatment Not on file documented as of this encounter Goals Goal Patient Goal Type Associated Problems Recent Progress Patient-Stated? Author CCM Chronic Pain Care Plan Chronic Care Management Worsening( 8:03 AM ARMHOLE RAISER LOCKSTITCH) Jessie Santana RN Note: Problem: Chronic Pain [...] COVID: Suspected 09/11/2023 09/11/2023 09/11/2023 12:05 PM ARMHOLE RAISER LOCKSTITCH documented as of this encounter Care Teams Property Loss Insurance Claim Adjuster Relationship Specialty Start Date End Date Ford Mar MD [address] [facility] [facility] [place] [id number] PCP - General 01/03/17 Zenaida Curry Physical Therapist Physical Therapy 03/17/18 Murphy Nguyen MD Anesthesiologist Pain Management 03/17/18 documented as of this encounter
--- OUTSIDE RECORDS SUMMARY | 2025-01-14 08:26 | XMS_ITS | Encounter Summary ---
Author Organization [facility] Address [address] [place] [address] Phone Care Team Providers Care Custom Studio Coordinator Name Role Phone Ford Mar MD Primary Care Provider [phone] Zenaida Curry Unavailable Unavailable Murphy Nguyen MD Unavailable Encounter Details Date Type Department Care Team (Latest Contact Info) Description 01/09/2022 Orders Only [facility] Scanning, Provider [...] on file Legal Sex Female 11:58 PM MID LEVEL PRACTITIONER Gender Identity Not on file Sexual Orientation Not on file documented as of this encounter Plan of Treatment Not on file documented as of this encounter Goals Goal Patient Goal Type Associated Problems Recent Progress Patient-Stated? Author CCM Chronic Pain Care Plan Chronic Care Management Worsening( 8:03 AM MID LEVEL PRACTITIONER) Jessie Santana RN Note: Problem: Chronic Pain [...] COVID: Suspected 09/11/2023 09/11/2023 09/11/2023 12:05 PM MID LEVEL PRACTITIONER documented as of this encounter Care Teams Custom Studio Coordinator Relationship Specialty Start Date End Date Ford Mar MD [address] [place] [address] PCP - General 01/03/17 Zenaida Curry Physical Therapist Physical Therapy 03/17/18 Murphy Nguyen MD Anesthesiologist Pain Management 03/17/18 documented as of this encounter
--- OUTSIDE RECORDS SUMMARY | 2025-01-14 08:26 | XMS_ITS | Encounter Summary ---
Author Organization [facility] Address [address] [place] [address] Care Team Providers Care Car Groomer Name Role Phone Ford Mar MD Primary Care Provider [phone] Zenaida Curry Unavailable Unavailable Murphy Nguyen MD Unavailable [phone] Encounter Details Date Type Department Care Team (Late st Contact Info) Description 03/09/2019 Documentation [facility] Case Management [address] [place] [address] Yohana Avitia RN Social History Tobacco Use Types Packs/Day Years Used Date Smoking Tobacco: Former Cigarettes 0.3 10 1 999 - 2008 Smokeless Tobacco: Never Alcohol Use Standard Drinks/Week Comments Yes 14 (1 standard drink = 0.6 oz pu re alcohol) Comments No Sex and Gender Information Value Date Recorded Sex Assigned at Not on file Legal Sex Female 11:58 PM ERP DEVELOPER Gender Identity Not on file Sexual Orientation [...] COVID: Suspected 09/11/2023 09/11/2023 09/11/2023 12:05 PM ERP DEVELOPER documented as of this encounter Care Teams Car Groomer Relationship Specialty Start Date End Date Ford Mar MD [address] [place] [address] PCP - General 01/03/17 Zenaida Curry Physical Therapist Physical Therapy 03/17/18 Murphy Nguyen MD Anesthesiologist Pain Management 03/17/18 documented as of this encounter
--- OUTSIDE RECORDS SUMMARY | 2025-01-14 08:26 | XMS_ITS | Encounter Summary ---
Author Organization [facility] Address [address] [place] [address] Phone Care Team Providers Care Manager Transition Name Role Phone Ford Mar MD Primary Care Provider [phone] Zenaida Curry Unavailable Unavailable Murphy Nguyen MD Unavailable [phone] Encounter Details Date Type Department Care Team (Late st Contact Info) Description 01/06/2024 Orders Only [facility] Ophthalmology [address] 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 Author CCM Chronic Pain Care Plan Chronic Care Management Worsening( 8:03 AM ASSISTANT COUNTY ATTORNEY) No Jessie Javier RN Note: Problem: Chronic [...] in superior visual field with elevation bilaterally. us Bryant Arnold MD OPHTH VISUAL FIELD Final Result documented in this encounter Visit Diagnoses Diagnosis Ptosis of eyelid, unspecified laterality- Primary documented in this encounter Care Teams Manager Transition Relationship Specialty Start Date End Date Ford Mar MD [address] [facility] [address] [place] [address] PCP - General 01/03/17 Zenaida Curry Physical Therapist Physical Therapy 03/17/18 Murphy Nguyen MD Anesthesiologist Pain Management 03/17/18 documented as of this encounter
--- OUTSIDE RECORDS SUMMARY | 2025-01-14 08:26 | XMS_ITS | Clinical Summary ---
Author Organization [facility] Address [address] [place] [address] Care Team Providers Care Medical Instrument Technician Name Role Phone Ford Mar MD Primary Care Provider [phone] Zenaida Curry Unavailable Unavailable Murphy Nguyen MD Unavailable [phone] Allergies No known active allergies Medications cholecalciferol (VITAMIN D3) 1,000 unit capsuleIndicatio ns:Vitamin D Deficiency Take 2 capsules (2,000 Units total) by mouth 2 (two) times a day 03/23/20 Active Additional Information Patient taking differently: 4,000 UnitsoralEvery morning, Indications: Vitamin D Deficiency, Informant: Self, Reported on 01/12/2025 rosuvastatin (CRESTOR) 10 mg tabletIndication s:hyperlipidemia Take 1 tablet (10 mg total) by mouth nightly CRUSH medication for 2 weeks. 03/09/20 Active Additional Information Patient taking differently:10 mg oral Nightly,(No instructions reported), Indications: hyperlipidemia, Informant: Self, Reported on 01/12/2025 multivitamin tabletIndication s:supplement Take 1 tablet by mouth 3 (three) times a week 2-3 times per week 03/23/20 Active Additional Information Patient taking differently:1 tablet oral4 times weekly, (No instructions reported), Indications: supplement, Informant: Self, Reported on 01/12/[address] (PROTONIX) 40 mg EC tabletIndication s:Treatment of Non-Bleeding Gastric Disorder Take 1 tablet (40 mg total) by mouth daily 42 tablet 12/07/19 20 029 Active Additional Information Patient taking differently:40 mg oral2 times daily, Indications: Treatment of Non-Bleeding Gastric Disorder, Informant: Self, Reported on 01/12/2025 docusate sodium (COLACE) 100 mg capsuleIndicatio ns:constipation [...] 1 tablet (112 mcg total) by mouth board runner before breakfast 12/21/19 23 Active clobetasoL (TEMOVATE) 0.05 % ointment Apply fingertip amount to vulva nightly. 45 g 12/23/19 24 Active Additional Information Patient taking differently: Nightly PRN, Apply fingertip amount to vulva nightly., Informant: Self, Reported on 01/23/2024 calcium carb/D3/magnesiu m/zinc (calcium carb-D3-mag img24-nejq) [phone] ee-mqqn-qp-mg tabletIndication s:Vitamin Deficiency Take 1 tablet by mouth nightly Active folic acid (FOLVITE) 400 mcg tablet Take 1 tablet (400 mcg total) by mouth nightly Active PSYLLIUM HUSK ORALIndications: constipation Take by mouth daily Active carvediloL (COREG) 6.25 mg tablet Take 1 tablet (6.25 mg total) by mouth 2 (two) times a day 180 tablet 3 05/24/20 24 Active nitroglycerin (NITROSTAT) [...] daily 90 tablet 3 05/28/20 24 Active polyethylene glycol (GoLYTELY) 236-22.74-6.74 -5.86 gram solution Follow [facility] prep instructions vs bottle instructions 4000 mL 12/07/19 25 Active hydroCHLOROthiaz jose (HYDRODIURIL) 25 mg tablet Take 1 tablet (25 mg total) by mouth daily 90 tablet 1 12/16/19 25 Active isosorbide mononitrate ER (IMDUR) 30 mg 24 hr tablet Take 1 tablet (30 mg total) by mouth daily 90 tablet 1 12/16/19 25 Active losartan (COZAAR) 50 mg tablet Take 1 tablet (50 mg total) by mouth daily 90 tablet 3 12/30/19 25 026 Active losartan (COZAAR) 50 mg tablet Take 1 tablet (50 mg total) by mouth daily 90 tablet 3 03/26/20 24 025 Discontin ued(Reord er) Active Problems Patient Care Coordination No te [...] esophageal dysmotility. Problem Noted Date Diagnosed Date Screening for colon cancer 12/06/2024 Hx of colonic polyps 12/06/2024 Decreased peripheral vision, bilateral Dermatochalasis of both upper eyelids 01/19/2024 Assessment [...] sciatica 08/31/2018 NSTEMI (non-ST elevated myocardial infarction) 1 Assessment & Plan (07/14/2018 8:41 AM CDT): [...] curve, negative ESR/CRP - Trops: 1.41-->1.46-->1.20-->0.87 - [facility] 07/13: Mild plaques in RCA, nonlaminar flow. Bridging LAD. No flow impingement. - s/p ticagrelor loading 180 mg - d/c ticagrelor 90 BID for treatment of NSTEMI - d/c heparin gtt - LV ventriculogram WNL. nml EF, no WMA - cards c/s, appreciate recs - [facility] today - ESR, CRP WNL - [...] initiating or maintaining sleep Paroxysmal atrial fibrillation 07/12/2015 Overview (01/10/2017): Paroxysmal atrial fibrillation Assessment & [...] Encounters Date Type Department Care Team Description 01/12/2025 1:20 PM CDT Anesthesia Event [facility] Endoscopy [id number] [place] [address] Marlyn Crespo MD Milnor, Melissa Jean, NEYMAR 01/12/2025 1:15 PM CDT - 01/12/2025 2:00 PM CDT Surgery [facility] Endoscopy [id number] [place], [place] [address] Chi Kaur MD PhD COLON REMOVAL SNARE 01/12/2025 12:25 PM CDT - 01/12/2025 2:55 PM CDT Hospital Encounter [facility] Endoscopy [id number] [place], [place] [address] Chi Kaur MD PhD Screening for colon cancer; Hx of colonic polyps Discharge Disposition: Discharge to home or self care 12/23/2024 1:32 PM CDT - 12/23/2024 11:59 PM CDT Hospital Encounter [facility] [address] [place] [address] Screening mammogram, encounter for Discharge Disposition: Discharge to home or self care 12/06/2024 Telephone [facility] Gastroenterology [address] [facility] 12th [place] [address] [place] [address] Kait Faith LPN Colonoscopy Scheduling 11/25/2024 Orders Only [facility] Scanning, Provider 11/09/2024 Telephone [facility] Cardiology [address] [facility] 8th [place] [address] [place] [address] Celestine Escobar MD coreg dosing 10/22/2024 Telephone [facility] Ophthalmology [address] [place] [address] Bryant Arnold MD from Last 3 Months Immunizations Immunization Administration Dates Next Due Influenza, Quadrivalent, Spl it, Preservative Free, Intramuscular 07/11/2018,11/16/2016 Pfizer SARS-CoV-2 Monovalent Vaccination (12+ Yrs) PURPLE 07/07/2021 Surgical History Surgery Date Site/Laterality Comments DILATION AND CURETTAGE OF UTERUS 10/06/1992 - 10/05/1993 WRIST SURGERY 10/06/2009 - 10/05/2010 Left ESOPHAGOSCOPY ESOPHAGOGASTRODUODENOSCOPY 02/12/2018;2013 COLONOSCOPY 10/06/2013 - 10/05/2014 CARDIAC CATHETERIZATION 07/13/2018 TOTAL ABDOMINAL HYSTERECTOMY 10/06/1998 - 10/05/1999 LAPAROSCOPIC HELLER MYOTOMY 10/06/2018 - 10/05/2019 ABLATION 10/06/2020 - 10/05/2021 Medical History Medical History Date Comments Hypertension Arthritis Atrial fibrillation (HCC) Heart attack (HCC) 07/11/[address] ents or bypass; NSTEMI Sleep apnea HLD (hyperlipidemia) Achalasia Esophageal spasm Difficult intravenous access Chronic pain disorder Dysphagia GERD (gastroesophageal reflux disease) Family History Medical History Relation Name Comments [...] alcohol? 4 or more times a week 01/12/2025 Q2: How many drinks containi ng alcohol do you have on a typical day when you are drinking? 1 or 2 Q3: How often do you have si x or more drinks on one occasion? Less than monthly 01/12/2025 Personal Safety Answer Date Recorded Have you ever been in or are you currently in a harmful physical or emotional relationship or is someone making you feel afraid or unsafe? 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 Gender Identity Not on file Sexual Orientation Not on file Obstetrics History Para Term AB IAB SAB Ectopic Multiple Livin g Live Births 4 3 3 1 1 2 2 Date Outcome GA Total Labor Labor/2nd/3rd Weight Sex Type Anes PTL Kennedi A1 A5 Name Clin 1987 Term M Vag-S pont Living 1990 SAB 1990 Term F Vag-S pont Complications:None 1992 Term F Vag-S pont Living Complications:None Last Filed Vital Signs Vital Sign Reading Time Taken Comments Blood Pressure 147/70 01/12/2025 2:25 PM CDT Pulse 67 01/12/2025 2:25 PM CDT Temperature 36.2 C (97.2 F) 01/12/2025 1:55 PM CDT Respiratory Rate 20 01/12/2025 2:25 PM CDT Oxygen Saturation 100% 01/12/2025 2:25 PM CDT Inhaled Oxygen Concentration - - Weight 89.8 kg (198 lb) 01/12/2025 12:33 PM CDT Height 170.2 cm (5' 7 ) 01/12/2025 12:33 PM CDT Body Mass Index 31.01 01/12/2025 12:33 PM CDT Plan of Treatment Health Maintenance Due Date Last Done Comments Depression Screening 1960 Hepatitis C Screening 1960 DTaP/Tdap/Td Vaccine (1 - Tdap) 1969 Hepatitis B Screening 1976 Pneumococcal vaccine 65+ (1 of 2 - PCV) 1977 Zoster Vaccine (1 of 2) 2008 Covid-19 Vaccine (2023-2 5 season) 2024 03/26/2022, 07/07/2021, 11/24/2020, Additional history exists Well Visit 65+ 09/01/2024 09/01/2023, 08/07, 10/28/2018 Influenza Vaccine (Season Ended) 2025 07/11/20 18, 11/16/2016 Osteoporosis Screening-Bone Density Scan 12/09/2025 2023, 08/06/2016, 11/17/2013 Breast Cancer Screening-Mammogram 12/23/2025 12/23/2024, 2023, 07/27/2020, Additional history exists Fall Risk Assessment 01/12/2026 01/12/2025 Colon Cancer Screening-Colonoscopy 01/12/2035 01/12/2025, 10/25/2013 Colon Cancer Screening-CT Colonography Discontinued 01/12/2025, 10/25/2013 Colon Cancer Screening-DNA Stool Discontinued 01/13/20, 10/25/2013 Colon Cancer Screening-FIT Discontinued 01/12/2025, Colon Cancer Screening-Sigmoidoscopy Discontinued 01/12/2025, 10/25/2013 Goals Goal Patient Goal Type Associated Problems Recent Progress Patient-Stated? Author CCM Chronic Pain Care Plan Chronic Care Management Worsening( 8:03 AM AIRPORT MAINTENANCE LABORER) Jessie Santana, RN Note: Problem: Chronic Pain Goals: 1. Minimize further functional decline 2. Maximize quality of life 3. Control pain Strategies: - Activity/exercise program recommendation - Conservative stepwise pain medicine strategy with multi-disciplinary approach - Recommend healthy lifestyle strategies and compensatory methods as needed Medical Devices Implanted Type Area Sleep Technologist Device Identifier Shelf Expiration Date Model / Serial / Lot Screw Left: Wrist [employer] [id number] System 6-12fr Mvp Venous Closure Vascade - [id number] Implanted:Qty: 1 on 05/24/2021 by Keshav Morgan MD PhD at [facility] [employer] 02/08/2023 800-612C-1 [id number] / / [id number] [employer] [id number] System 6-12fr Mvp Venous Closure Vascade - [id number] Implanted:Qty: 1 on 05/24/2021 by Keshav Morgan MD PhD at [facility] [employer] 01/31/2023 800-612C-1 [id number] / / [id number] [employer] [id number] System 6-12fr Mvp Venous Closure Vascade - [id number] Implanted:Qty: 1 on 05/24/2021 by Keshav Morgan MD PhD at [facility] [employer] 01/31/2023 800-612C-1 0U / / [id number] [employer] [id number] Device Closure Vascade Od5 Fr Femoral Artery - [id number] Implanted:Qty: 1 on 05/24/2021 by Keshav Morgan MD PhD at [facility] [employer] 02/21/2023 [id number] / / [id number] Procedures Procedure Name Priority Date/Time Associated Diagnosis Comments SURGICAL PATHOLOGY Routine 01/12/2025 1: 45 PM CDT Screening for colon cancer Hx of colonic polyps ENDO ADD ON COLON BIOPSY 01/12/2025 1:19 PM CDT Screening for colon cancer Hx of colonic polyps COLON REMOVAL SNARE 01/12/2025 1:19 PM CDT Screening for colon cancer Hx of colonic polyps COLONOSCOPY 01/12/2025 1:14 PM CDT SCREENING MAMMOGRAM BILATERAL W RAPHAEL Schedule Routine, Read Routine (OP Routine) 12/23/2024 1:48 PM CDT Screening mammogram, encounter for SCAN - LABS 11/25/2024 DEXA AXIAL SKELETON BONE DENSITY 1 OR MORE SITES Schedule Routine, Read Routine (OP Routine) 2023 10:27 AM AIRPORT MAINTENANCE LABORER Osteoporosis, unspecified osteoporosis type, unspecified pathological fracture presence from Last 3 Months or Most Recently Relevant to Health Maintenance Results * Surgical pathology (01/12/2025 1:45 PM CDT) Tissue (Polyp(s), colon/colorectal, esophageal, gastric) 01/12/2025 1:45 PM CDT Narrative PATHOLOGY BJ[facility] - 01/13/2025 10:18 AM CDT EPIC results best viewed via link to PDF [facility]ena[facility] [place] [address] Note to Patients: This report may contain a detailed description of human tissue sent by a health care provider to the laboratory for pathologic evaluation. The content of this report is essential for diagnosis and may provide important critical findings. This information may be unfamiliar to patients to review without a medical professional present. It is advised that the patient review this report in the presence of a health care provider who can answer questions and explain the details. SURGICAL PATHOLOGY REPORT FINAL Patient Name: NANCY LEVINE Gender: F : 1960 (Age: 64) Address: [address] [place] [address] [place] [address] Hospital #: [id number] Taken:01/12/2025 Received:01/12/2025 Reported: 01/13/2025 Patient Type: [facility] EP SAME Client [facility] Service: Gastroenterology Location: Physician(s): Mary Murray M.D. Diagnosis: Large intestine, sigmoid colon, biopsy: - Tubular adenoma - Separate fragments of colonic mucosa with reactive epithelial changes tcl/01/13/2025 10:18 By this signature, I attest that the above diagnosis is based upon my personal examination of the slides(and/or other material indicated in the diagnosis). Meri Cid M.D., Ph.D. Report Electronically Reviewed and Signed Out By Meri Cid M.D., Ph.D. 01/13/2025 10:18:44 History: The patient is a 64-year-old woman presenting with a history of colonic polyps; screening for colon cancer. Operative procedure: Colon removal snare with biopsy. Specimen(s) Received: A: Sigmoid colon polyps Gross Description: Received in formalin, labeled with the patient s identifiers and sigmoid colon polyp and consists of three huynh and red polypoid fragment(s) of soft tissue measuring 0.3-1.3 cm each in greatest dimension. Labeled A1. Jar 0. sxst/01/12/2025 19:34 PA(s): Jada Villar By this signature, I attest that the above diagnosis is based upon my personal examination of the slides(and/or other material). Addenda/Procedures Microscopic slide review and interpretation for this case was performed at [facility], Department of Surgical Pathology, [address] [facility], [place] [id number], [place] [address] CLIA # [id number] The performance characteristics of some immunohistochemical stains, fluorescence in-situ hybridization tests and immunophenotyping by flow cytometry cited in this report (if any) were determined by the Surgical Pathology and Flow Cytometry Departments at [facility] as part of an ongoing water quality control engineer program and in compliance with federally mandated regulations drawn from the Clinical Laboratory Improvement Act of 1988 (CLIA '88). Some of these tests rely on the use of analyte specific reagents and are subject to specific labeling requirements by the US Food and Drug Administration. Such diagnostic tests may only be performed in a facility that is certified by the Department of Health and Human Services as a high complexity laboratory under CLIA '88. The FDA has determined that such clearance or approval is not necessary. This test is used for clinical purposes. It should not be regarded as investigational or for research. Nevertheless, federal rules concerning the medical use of analyte specific reagents require that the following disclaimer be attached to the report: This test was developed and its performance characteristics determined by the Surgical Pathology and Flow Cytometry Departments of [facility]. It has not been cleared or approved by the U. S. Food and Drug Administration. IMAGES AND SCANNED DOCUMENTS, IF INCLUDED, ONLY VIEWABLE IN PDF VERSION OF REPORT Chi Kaur MD PhD LAB PATHOLOGY ORDERAB LES Final Result PATHOLOGY [facility] [phone] * Colonoscopy (01/12/2025 1:14 PM CDT) Anatomical Region Laterality Modality Other Narrative Procedure Note Chi Kaur MD PhD - 01/12/2025 1:14 PM CDT ENDOSCOPY LAB Patient Name: Nancy Levine Procedure Date: 01/12/2025 1:14 PM Date of : 1960 Admit Type: Outpatient Age: 64 Gender: Female Attending MD: Chi Kaur M.D. Room: [facility] ENDOSCOPY ROOM 01 Note Status: Finalized Procedure: Colonoscopy Indications: High risk colon cancer surveillance: Personalhistory of adenoma less than 10 mm in size. Lastcolonoscopy: October 2013. Comorbidities Coronary artery disease, Atrial fibrillation, Sleep apnea Providers: Chi Kaur M.D. Referring MD: Ford Mar M.D. Medicines: Monitored Anesthesia Care Complications: No immediate complications. Estimated Blood Loss: Estimated blood loss was minimal. Procedure: Pre-Anesthesia Assessment: - Immediately prior to administration ofmedications, the patient was re-assessed for adequacy to receive sedatives. The benefits, risks and alternatives of theprocedure and sedation were discussed and informed consentwas obtained. All questions were answered. Please referto the signed informed consent document in the medical record. The scope was passed under direct vision.The [id number] was introduced through the anusand advanced to the terminal ileum, with identificationof the appendiceal orifice and IC valve. Thecolonoscopy was performed without difficulty. The patient tolerated the procedure well. The quality of thebowel preparation was evaluated using the BBPS (BostonBowel Preparation Scale) with scores of: Right Colon = 3, Transverse Colon = 3 and Left Colon = 3 (entiremucosa seen well with no residual staining, smallfragments of stool or opaque liquid). The total BBPS score equals 9. Findings: The perianal and digital rectal examinations were normal. The terminal ileum appeared normal. A 2 to 3 mm sessile polyp was found in the sigmoid colon. The polypwas removed with a cold biopsy forceps. Resection and retrieval were complete. A 7 to 8 mm semi-sessile polyp was found in the sigmoid colon. Thepolyp was removed with a cold snare. Resection and retrieval werecomplete. Many small and large-mouthed diverticula were found in the entirecolon. Moderate, non-bleeding internal hemorrhoids were found during retroflexion. Impression: - The examined portion of the ileum was normal. - One 2 to 3 mm polyp in the sigmoid colon, removed with a cold biopsy forceps. Resected andretrieved. - One 7 to 8 mm polyp in the sigmoid colon, removed with a cold snare. Resected and retrieved. - Diverticulosis in the entire examined colon. - Non-bleeding internal hemorrhoids. Recommendation: - Await pathology results. - Repeat colonoscopy in 3 - 5 years forsurveillance based on pathology results. - High fiber diet. Attending Participation: I personally performed the entire procedure. Electronically Signed By: Zachery Kaur MD Chi Kaur M.D. 01/12/2025 1:55:01 PM Number of Addenda: 0 Note Initiated On: 01/12/2025 1:14 PM us Chi Kaur MD PhD ENDOSCOPY PROCEDURES Final Result * Screening Mammogram Bilateral W Raphael (12/23/2024 1:48 PM CDT) Anatomical Region Laterality Modality Breast Bilateral Mammography Narrative 12/23/2024 4:29 PM CDT Mammogram Technique: Bilateral Digital Breast Tomosynthesis, Bilateral C-view 2D Screening mammogram. Views obtained: bilateral craniocaudal and bilateral mediolateral oblique. Computer Aided Detection was performed. Mammogram Findings: The present examination has been compared to prior imaging studies performed at [facility] on 08/06/2016, 09/25/2018 and 07/27/2020. The breasts are almost entirely fatty. There is no suspicious abnormality in either breast. Impression: There is no mammographic evidence of malignancy. Annual screening mammography is recommended. OVERALL FINAL ASSESSMENT: BI-RADS CATEGORY 1: Negative. Procedure Note Abimbola Gomes MD - 12/23/2024 Mammogram Technique: Bilateral Digital Breast Tomosynthesis, Bilateral C-view 2D Screening mammogram. Views obtained: bilateral craniocaudal and bilateral mediolateral oblique. Computer Aided Detection was performed. Mammogram Findings: The present examination has been compared to prior imaging studies performed at [facility] on 08/06/2016, 09/25/2018 and 07/27/2020. The breasts are almost entirely fatty. There is no suspicious abnormality in either breast. Impression: There is no mammographic evidence of malignancy. Annual screening mammography is recommended. OVERALL FINAL ASSESSMENT: BI-RADS CATEGORY 1: Negative. us Self Screening Mammogram IMG MAMMO PROCEDURES Fi nal Result * SCAN - LABS (11/25/2024) us Provider Scanning Final Result * Dexa Axial Skeleton Bone Density 1 Or 2 Site (2023 10:27 AM AIRPORT MAINTENANCE LABORER) Anatomical Region Laterality Modality Body N/A Mammography 2023 8:27 PM AIRPORT MAINTENANCE LABORER Narrative 2023 8:28 PM AIRPORT MAINTENANCE LABORER EXAM DESCRIPTION: DEXA AXIAL SKELETON BONE DENSITY 1 OR MORE SITES REASON FOR STUDY: 62 y/o year old F with given history of: Osteoporosis Postmenopausal Sleep Technologist/Model: Peak[employer] A (S/N [id number]) CLINICAL INFORMATION: Current height: 67 inches Maximum [...] Murphy Sanchez M.D. MF: DONTA Report ID: [id number] Reading Location: [address] Note Murphy Sanchez MD - 2023 EXAM DESCRIPTION: DEXA AXIAL SKELETON BONE DENSITY 1 OR MORE SITES REASON FOR STUDY: 62 y/o year old F with given history of:Osteoporosis Postmenopausal Sleep Technologist/Model: PeakStream A (S/N [id number]) CLINICAL INFORMATION: Current height: 67 inches Maximum [...] Murphy Sanchez M.D. MF: DONTA Report ID: [id number] Reading Location: [place] [address] Susannaab Marr MD IMG DXA PROCED URES Final Result from Last 3 Months or Most Recently Relevant to Health Maintenance Insurance MEDICARE [facility] [address] CHOICE PLUS MEDICARE AAR Advance Directives For more information, please contact: [phone] * Full Code (Latest Code Status on File) Date Activated Date Inactivated Comments 01/12/2025 12:39 PM 01/12/2025 6:55 PM * Full Code Date Activated Date Inactivated Comments 12/07/2019 7:31 AM 12/07/2019 1:28 PM * Full Code Date Activated Date Inactivated Comments 03/08/2019 6:40 PM 03/09/2019 10:19 PM * Full Code Date Activated Date Inactivated Comments 07/11/2018 8:02 PM 07/14/2018 4:16 PM Care Teams Medical Instrument Technician Relationship Specialty Start Date End Date Ford Mar MD [address] [facility] [address] [place] [address] PCP - General 01/03/17 Zenaida Curry Physical Therapist Physical Therapy 03/17/18 Murphy Nguyen MD Anesthesiologist Pain Management 03/17/18
--- OUTSIDE RECORDS SUMMARY | 2025-01-14 08:26 | XMS_ITS | Referral Summary ---
Author Organization [facility] Address [address] [place] [address] Care Team Providers Care Torch Straightener And Heater Name Role Phone Ford Mar MD Primary Care Provider [phone] Zenaida Curry Unavailable Unavailable Murphy Nguyen MD Unavailable [phone] Encounters Date Type Department Care Team Description 01/12/2025 1:15 PM CDT - 01/12/2025 2:00 PM CDT Surgery [facility] Endoscopy [id number] [place] [address] Chi Kaur MD PhD COLON REMOVAL SNARE 01/12/2025 1:20 PM CDT Anesthesia Event [facility] Endoscopy [address] [place] [address] Marlyn Crespo MD Milnor, Melissa Jean, OUT AND OUT CIGAR MAKER HAND 01/12/2025 12:25 PM CDT - 01/12/2025 2:55 PM CDT Hospital Encounter [facility] Endoscopy [address] [place] [address] Chi Kaur MD PhD Screening for colon cancer; Hx of colonic polyps Discharge Disposition: Discharge to home or self care 12/23/2024 1:32 PM CDT - 12/23/2024 11:59 PM CDT Hospital Encounter [facility] [address] [place] [address] Screening mammogram, encounter for Discharge Disposition: Discharge to home or self care 12/06/2024 Telephone [facility] Gastroenterology [address] [facility] [address] 12th [place] [address] [place] [id number] Kait Faith LPN Colonoscopy Scheduling 11/25/2024 Orders Only [facility] Scanning, Provider 11/09/2024 Telephone [facility] Cardiology [address] 8th [place] [address] [place] [phone] Celestine Escobar MD coreg dosing 10/22/2024 Telephone [facility] Ophthalmology [address] [facility] [address] [place] [address] Bryant Arnold MD from Last 3 Months Allergies No known active allergies Medications cholecalciferol (VITAMIN D3) 1,000 unit capsuleIndicatio ns:Vitamin D Deficiency Take 2 capsules (2,000 Units total) by mouth 2 (two) times a day 03/23/20 19 Active Additional Information Patient taking differently: 4,000 UnitsoralEvery morning, Indications: Vitamin D Deficiency, Informant: Self, Reported on 01/12/2025 rosuvastatin (CRESTOR) 10 mg tabletIndication s:hyperlipidemia Take 1 tablet (10 mg total) by mouth nightly CRUSH medication for 2 weeks. 03/09/20 19 Active Additional Information Patient taking differently:10 mg [...] 1 tablet (112 mcg total) by mouth distribution agent before breakfast 12/21/19 23 Active clobetasoL (TEMOVATE) 0.05 % ointment Apply fingertip amount to vulva nightly. 45 g 12/23/19 24 Active Additional Information Patient taking differently: Nightly PRN, Apply fingertip amount to vulva nightly., Informant: Self, Reported on 01/23/2024 calcium carb/D3/magnesiu m/zinc (calcium carb-D3-mag xna35-pnwz) [phone] td-oogg-jo-mg tabletIndication s:Vitamin Deficiency Take 1 tablet by [...] glycol (GoLYTELY) 236-22.74-6.74 -5.86 gram solution Follow [facility] prep instructions vs bottle instructions 4000 mL [...] (02/04/2019): Added automatically from request for surgery [id number] Left hip pain 08/31/2018 Chronic bilateral low [...] curve, negative ESR/CRP - Trops: 1.41-->1.46-->1.20-->0.87 - [facility] 07/13: Mild plaques in RCA, nonlaminar flow. Bridging LAD. No flow impingement. - s/p ticagrelor loading 180 mg - d/c ticagrelor 90 BID for treatment of NSTEMI - d/c heparin gtt - LV ventriculogram WNL. nml EF, no WMA - cards c/s, appreciate recs - [facility] today - ESR, CRP WNL - [...] on file Legal Sex Female 11:58 PM REGULATOR PIN INSERTER Gender Identity Not on file Sexual Orientation [...] 01/12/2025 12:33 PM CDT Plan of Treatment Not on file Goals Goal Patient Goal Type Associated Problems Recent Progress Patient-Stated? Author CCM Chronic Pain Care Plan Chronic Care Management Worsening( 8:03 AM REGULATOR PIN INSERTER) No Jessie Javier, DARRIN Note: Problem: Chronic Pain Goals: 1. Minimize further functional decline 2. Maximize quality of life 3. Control pain Strategies: - Activity/exercise program recommendation - Conservative stepwise pain medicine strategy with multi-disciplinary approach - Recommend healthy lifestyle strategies and compensatory methods as needed Medical Devices Implanted Type Area Machine Lacer Device Identifier Shelf Expiration Date Model / Serial / Lot Screw Left: Wrist [employer] [id number] System 6-12fr Mvp Venous Closure Vascade - [id number] Implanted:Qty: 1 on 05/24/2021 by Keshav Morgan MD PhD at [facility] [employer] 02/08/2023 800-612C-1 [id number] / / [id number] [employer] [id number] System 6-12fr Mvp Venous Closure Vascade - [id number] Implanted:Qty: 1 on 05/24/2021 by Keshav Morgan MD PhD at [facility] [employer] 01/31/2023 800-612C-1 [id number] / / [id number] 5C [employer] [id number] System 6-12fr Mvp Venous Closure Vascade - [id number] Implanted:Qty: 1 on 05/24/2021 by Keshav Morgan MD PhD at [facility] [employer] 01/31/2023 800-612C-1 [id number] / / [id number] 5C [employer] [id number] Device Closure Vascade Od5 Fr Femoral Artery - [id number] Implanted:Qty: 1 on 05/24/2021 by Keshav Morgan MD PhD at [facility] [employer] 02/21/2023 [id number] / / [id number] Procedures Procedure Name Priority Date/Time Associated [...] Read Routine (OP Routine) 2023 10:27 AM REGULATOR PIN INSERTER Osteoporosis, unspecified osteoporosis type, unspecified pathological fracture presence from Last 3 Months or Most Recently Relevant to Health Maintenance Results * Surgical pathology (01/12/2025 1:45 PM CDT) Tissue (Polyp(s), colon/colorectal, esophageal, gastric) 01/12/2025 1:45 PM CDT Narrative PATHOLOGY [facility] - 01/13/2025 10:18 AM CDT [facility] results best viewed via link to PDF [facility] Zenaida [facility] Surgical Pathology [address] [facility] [place] [address] Note to Patients: This report may contain [...] Gender: F : 1960 (Age: 64) Address: [address] [place], [place] [id number] Hospital #: [id number] Taken:01/12/2025 Received:01/12/2025 Reported: 01/13/2025 Patient Type: [facility] EP SAME Client [facility] Service: Gastroenterology Location: Physician(s): Mary Murray M.D. Diagnosis: Large intestine, sigmoid colon, biopsy: - Tubular adenoma - Separate fragments of colonic mucosa with reactive epithelial changes tc/01/13/2025 10:18 By this signature, I attest that [...] interpretation for this case was performed at [facility], Department of Surgical Pathology, [address] [facility] [address], [id number], [place] [address] CLIA # [id number] The performance characteristics of some immunohistochemical stains, fluorescence in-situ hybridization tests and immunophenotyping by flow cytometry cited in this report (if any) were determined by the Surgical Pathology and Flow Cytometry Departments at [facility] as part of an ongoing clinical quality assurance associate program and in compliance with federally mandated [...] Surgical Pathology and Flow Cytometry Departments of [facility]. It has not been cleared or approved by the U. S. Food and Drug Administration. IMAGES AND SCANNED DOCUMENTS, IF INCLUDED, ONLY VIEWABLE IN PDF VERSION OF REPORT Chi Kaur MD PhD LAB PATHOLOGY ORDERAB LES Final Result PATHOLOGY [facility] [phone] * Colonoscopy (01/12/2025 1:14 PM CDT) Anatomical Region Laterality Modality Other Narrative Procedure Note Chi Kaur MD PhD - 01/12/2025 1:14 PM CDT ENDOSCOPY LAB Patient Name: Nancy Levine Procedure Date: 01/12/2025 1:14 PM Date of : 1960 Admit Type: Outpatient Age: 64 Gender: Female Attending MD: Chi Kaur M.D. Room: [facility] ENDOSCOPY ROOM 01 Note Status: Finalized [...] The scope was passed under direct vision.The [id number] was introduced through the anusand advanced to [...] 0 Note Initiated On: 01/12/2025 1:14 PM Chi Kaur MD PhD ENDOSCOPY PROCEDURES Final [...] compared to prior imaging studies performed at [facility] on 08/06/2016, 09/25/2018 and 07/27/2020. The [...] compared to prior imaging studies performed at [facility] on 08/06/2016, 09/25/2018 and 07/27/2020. The [...] 1 Or 2 Site (2023 10:27 AM REGULATOR PIN INSERTER) Anatomical Region Laterality Modality Body N/A Mammography 2023 8:27 PM REGULATOR PIN INSERTER Narrative 2023 8:28 PM REGULATOR PIN INSERTER EXAM DESCRIPTION: DEXA AXIAL SKELETON BONE DENSITY 1 OR MORE SITES REASON FOR STUDY: 62 y/o year old F with given history of: Osteoporosis Postmenopausal Machine Lacer/Model: me[employer]BT / [employer] A (S/N [id number]) CLINICAL INFORMATION: Current height: 67 inches Maximum [...] Murphy Sanchez M.D. MF: DONTA Report ID: [id number] Reading Location: [id number] Procedure Note Murphy Sanchez MD - 2023 EXAM DESCRIPTION: DEXA AXIAL SKELETON BONE DENSITY 1 OR MORE SITES REASON FOR STUDY: 62 y/o year old F with given history of:Osteoporosis Postmenopausal Machine Lacer/Model: [employer] A (S/N [id number]) CLINICAL INFORMATION: Current height: 67 inches Maximum [...] Murphy Sanchez M.D. MF: DONTA Report ID: [id number] Reading Location: [id number] us Susanna Abimbola Marr MD IMG DXA PROCED URES Final Result from Last 3 Months or Most Recently Relevant to Health Maintenance Insurance MEDICARE [facility] CHOICE PLUS MEDICARE [facility] Advance Directives For more information, please contact: [phone] * Full Code (Latest Code Status on File) Date Activated Date Inactivated Comments 01/12/2025 12:39 PM 01/12/2025 6:55 PM * Full Code Date Activated Date Inactivated Comments 12/07/2019 7:31 AM 12/07/2019 1:28 PM * Full Code Date Activated Date Inactivated Comments 03/08/2019 6:40 PM 03/09/2019 10:19 PM * Full Code Date Activated Date Inactivated Comments 07/11/2018 8:02 PM 07/14/2018 4:16 PM Care Teams Torch Straightener And Heater Relationship Specialty Start Date End Date Ford Mar MD [address] [facility] [address] [place] [id number] PCP - General 01/03/17 Zenaida Curry Physical Therapist Physical Therapy 03/17/18 Murphy Nguyen MD Anesthesiologist Pain Management 03/17/18
--- OUTSIDE RECORDS SUMMARY | 2025-01-14 08:26 | XMS_ITS | Encounter Summary ---
Author Organization [facility] Healthcare Address [address] [place] [address] Care Team Providers Care Resident Buyer Name Role Phone Ford Mar MD Primary Care Provider [phone] Zenaida Curry Unavailable Unavailable Murphy Nguyen MD Unavailable [phone] Reason for Visit * Reason Onset Date Comments mri order 01/02/2022 Encounter Details Date Type Department Care Team (Late st Contact Info) Description 01/02/2022 Telephone [facility] [place] [facility] [address] [facility] [place] Advanced Medicine [address] [place] [address] Amelia Winkler MD [address] [place] [address] mri order Social History Tobacco Use Types [...] on file Legal Sex Female 11:58 PM WIRE WELDER Gender Identity Not on file Sexual Orientation Not on file documented as of this encounter Plan of Treatment Not on file documented as of this encounter Goals Goal Patient Goal Type Associated Problems Recent Progress Patient-Stated? Author CCM Chronic Pain Care Plan Chronic Care Management Worsening( 8:03 AM WIRE WELDER) No Jessie Javier RN Note: Problem: Chronic [...] COVID: Suspected 09/11/2023 09/11/2023 09/11/2023 12:05 PM WIRE WELDER documented as of this encounter Care Teams Resident Buyer Relationship Specialty Start Date End Date Ford Mar MD [address] [place] [phone] PCP - General 01/03/17 Zenaida Curry Physical Therapist Physical Therapy 03/17/18 Murphy Nguyen MD Anesthesiologist Pain Management 03/17/18 documented as of this encounter
--- OUTSIDE RECORDS SUMMARY | 2025-01-14 08:26 | XMS_ITS | Encounter Summary ---
Author Organization [facility] Address [address] [place] [address] Phone Care Team Providers Care Location Manager Name Role Phone Ford Mar MD Primary Care Provider [phone] Zenaida Curry Unavailable Unavailable Murphy Nguyen MD Unavailable [phone] Encounter Details Date Type Department Care Team (Latest Contact Info) Description 04/05/2022 Orders Only [facility] Scanning, Provider [...] on file Legal Sex Female 11:58 PM EVENT HOST Gender Identity Not on file Sexual Orientation Not on file documented as of this encounter Plan of Treatment Not on file documented as of this encounter Goals Goal Patient Goal Type Associated Problems Recent Progress Patient-Stated? Author CCM Chronic Pain Care Plan Chronic Care Management Worsening( 8:03 AM EVENT HOST) Jessie Santana RN Note: Problem: Chronic Pain [...] COVID: Suspected 09/11/2023 09/11/2023 09/11/2023 12:05 PM EVENT HOST documented as of this encounter Care Teams Location Manager Relationship Specialty Start Date End Date Ford Mar MD [address] [place] [address] PCP - General 01/03/17 Zenaida Curry Physical Therapist Physical Therapy 03/17/18 Murphy Nguyen MD Anesthesiologist Pain Management 03/17/18 documented as of this encounter
[2025-01-14 09:20] LABS: Strep Group A RT-PCR NOT DETECTED (Negative)
[2025-01-14 09:47] LABS: Influenza A QL RT-PCR Negative (Negative); Influenza B QL RT-PCR Negative (Negative)
== END 2025-01-14 08:16 | disposition home or self-care (01) ==
LOC: ANHLAB 08:18
PROVIDERS: PCP Internal Medicine; Visit Provider Internal Medicine
DX: J02.9 Acute pharyngitis, unspecified (principal); R50.9 Fever, unspecified
CPT/HCPCS: 87502; 87651

== ENCOUNTER 2025-05-19 15:38 | Outpatient (CLI) | payer MEDICARE, SELFPAY ==
--- OUTSIDE RECORDS SUMMARY | 2025-05-19 15:45 | XMS_ITS | Encounter Summary ---
Author Organization [facility] Healthcare Address [address] [place] [address] Care Team Providers Care Off Track Betting Manager Name Role Phone Ford Mar MD Primary Care Provider [phone] Zenaida Curry Unavailable Unavailable Murphy Nguyen MD Unavailable [phone] Encounter Details Date Type Department Care Team (Late st Contact Info) Description 03/09/2019 Documentation [facility] Case Management [address] [place] [address] Yohana Avitia RN Social History Tobacco Use Types Packs/Day Years Used Date Smoking Tobacco: Former Cigarettes 0.3 10 1 999 - 2008 Smokeless Tobacco: Never Alcohol Use Standard Drinks/Week Comments Yes 14 (1 standard drink = 0.6 oz pu re alcohol) Comments No Sex and Gender Information Value Date Recorded Sex Assigned at Not on file Legal Sex Female 11:58 PM DIRECTOR OF CURRICULUM AND INSTRUCTION Gender Identity Not on file Sexual Orientation [...] COVID: Suspected 09/11/2023 09/11/2023 09/11/2023 12:05 PM DIRECTOR OF CURRICULUM AND INSTRUCTION documented as of this encounter Care Teams Off Track Betting Manager Relationship Specialty Start Date End Date Ford Mar MD [address] [place] [address] PCP - General 01/03/17 Zenaida Curry Physical Therapist Physical Therapy 03/17/18 Murphy Nguyen MD Anesthesiologist Pain Management 03/17/18 documented as of this encounter
--- OUTSIDE RECORDS SUMMARY | 2025-05-19 15:45 | XMS_ITS | Encounter Summary ---
Author Organization [facility] Address [address] [place] [address] Phone Care Team Providers Care Continuing Education Director Name Role Phone Ford Mar MD Primary Care Provider [phone] Zenaida Curry Unavailable Unavailable Murphy Nguyen MD Unavailable [phone] Encounter Details Date Type Department Care Team (Late st Contact Info) Description 01/06/2024 Orders Only [facility] Ophthalmology [address] [facility] 6th [place] [address] Bryant Arnold MD [address] [facility] [address] [place] [address] Ptosis of eyelid, unspecified laterality [...] on file Legal Sex Female 11:58 PM POOL TECHNICIAN Gender Identity Not on file Sexual Orientation Not on file documented as of this encounter Plan of Treatment Not on file documented as of this encounter Goals Goal Patient Goal Type Associated Problems Recent Progress Patient-Stated? Author CCM Chronic Pain Care Plan Chronic Care Management Worsening( 8:03 AM POOL TECHNICIAN) No Jessie Javier RN Note: Problem: Chronic [...] Primary documented in this encounter Care Teams Continuing Education Director Relationship Specialty Start Date End Date Ford Mar MD [address] [facility] [address] [place] [address] PCP - General 01/03/17 Zenaida Curry Physical Therapist Physical Therapy 03/17/18 Murphy Nguyen MD Anesthesiologist Pain Management 03/17/18 documented as of this encounter
--- OUTSIDE RECORDS SUMMARY | 2025-05-19 15:45 | XMS_ITS | Encounter Summary ---
Author Organization [facility] Healthcare Address [address] [place] [address] Care Team Providers Care Scheduling Clerk Name Role Phone Ford Mar MD Primary Care Provider [phone] Zenaida Curry Unavailable Unavailable Murphy Nguyen MD Unavailable [phone] Reason for Visit * Reason Onset Date Comments mri order 01/02/2022 Encounter Details Date Type Department Care Team (Late st Contact Info) Description 01/02/2022 Telephone [facility] the [place] [facility] [address] [facility] Advanced Medicine [address] [place] [address] Amelia Winkler MD [address] [place] [address] mri order Social History Tobacco Use Types [...] on file Legal Sex Female 11:58 PM ORE CHARGER Gender Identity Not on file Sexual Orientation Not on file documented as of this encounter Plan of Treatment Not on file documented as of this encounter Goals Goal Patient Goal Type Associated Problems Recent Progress Patient-Stated? Author CCM Chronic Pain Care Plan Chronic Care Management Worsening( 8:03 AM ORE CHARGER) No Jessie Javier RN Note: Problem: Chronic [...] COVID: Suspected 09/11/2023 09/11/2023 09/11/2023 12:05 PM ORE CHARGER documented as of this encounter Care Teams Scheduling Clerk Relationship Specialty Start Date End Date Ford Mar MD [address] [place] [phone] PCP - General 01/03/17 Zenaida Curry Physical Therapist Physical Therapy 03/17/18 Murphy Nguyen MD Anesthesiologist Pain Management 03/17/18 documented as of this encounter
--- OUTSIDE RECORDS SUMMARY | 2025-05-19 15:45 | XMS_ITS | Clinical Summary ---
Author Organization [facility] Address [address] [place] [address] Care Team Providers Care Assistant Maintenance Manager Name Role Phone Ford Mar MD Primary Care Provider [phone] Zenaida Curry Unavailable Unavailable Murphy Nguyen MD Unavailable [phone] Allergies No known active allergies Medications cholecalciferol (VITAMIN D3) 1,000 unit capsuleIndication s:Vitamin D Deficiency Take 2 capsules (2,000 Units total) by mouth 2 (two) times a day 9 Active rosuvastatin (CRESTOR) 10 mg tabletIndications :hyperlipidemia Take 1 tablet (10 mg total) by mouth nightly CRUSH medication for 2 weeks. 9 Active multivitamin tabletIndications :supplement Take 1 tablet by mouth 3 (three) times a week 2-3 times per week [address] (PROTONIX) 40 mg EC tabletIndications :Treatment of Non-Bleeding Gastric Disorder Take 1 tablet (40 mg total) by mouth daily 42 tablet 0 06/07/20 29 Active docusate sodium (COLACE) 100 mg capsuleIndication s:constipation Take 1 capsule (100 mg total) by mouth daily Active aspirin 325 mg tabletIndications :Myocardial Reinfarction Prevention Take 1 tablet (325 mg total) by mouth every morning Active Synthroid 112 mcg tabletIndications :hypothyroidism Take 1 tablet (112 mcg total) by mouth paralegal internship before breakfast 3 Active calcium carb/D3/magnesium /zinc (calcium carb-D3-mag pgh40-vnij) [phone] hq-mzag-lg-mg tabletIndications :Vitamin Deficiency Take 1 tablet by mouth nightly Active folic acid (FOLVITE) 400 mcg tablet Take 1 tablet (400 mcg total) by mouth nightly Active PSYLLIUM HUSK ORALIndications:c onstipation Take by mouth daily Active carvediloL (COREG) 6.25 mg tablet Take 1 tablet (6.25 mg total) by mouth 2 (two) times a day 180 tablet 3 4 Active nitroglycerin (NITROSTAT) 0.[address] 1 tablet (0.4 mg total) under the tongue every 5 (five) minutes as needed for chest pain May repeat dose q 5 min, up to 3 doses total 100 tablet 11 4 Active ezetimibe (ZETIA) 10 mg tablet Take 1 tablet (10 mg total) by mouth daily 90 tablet 3 4 Active hydroCHLOROthiazi de (HYDRODIURIL) 25 mg tablet Take 1 tablet (25 mg total) by mouth daily 90 tablet 1 5 Active isosorbide mononitrate ER (IMDUR) 30 mg 24 hr tablet Take 1 tablet (30 mg total) by mouth daily 90 tablet 1 5 Active losartan (COZAAR) 50 mg tablet Take 1 tablet (50 mg total) by mouth daily 90 tablet 3 5 12/30/19 26 Active Active Problems Patient Care Coordination No [...] (02/04/2019): Added automatically from request for surgery [id number] Left hip pain 08/31/2018 Chronic bilateral low [...] curve, negative ESR/CRP - Trops: 1.41-->1.46-->1.20-->0.87 - [facility] 07/13: Mild plaques in RCA, nonlaminar flow. Bridging LAD. No flow impingement. - s/p ticagrelor loading 180 mg - d/c ticagrelor 90 BID for treatment of NSTEMI - d/c heparin gtt - LV ventriculogram WNL. nml EF, no WMA - cards c/s, appreciate recs - [facility] today - ESR, CRP WNL - ASA [...] Encounters Date Type Department Care Team Description 05/17/2025 Orders Only [facility] [address] [facility] [address] [facility] 8[address] [place] [address] [place] [address] Celestine Escobar MD Coronary artery disease involving wainwright heart without angina pectoris, unspecified vessel or lesion type (Primary Dx) from Last 3 Months Immunizations Immunization Administration [...] on file Legal Sex Female 11:58 PM INTERNAL COMBUSTION ENGINE INSPECTOR Gender Identity Not on file Sexual Orientation [...] Sign Reading Time Taken Comments Blood Pressure 123/82 01/17/2025 8:45 AM CDT Pulse 68 01/17/2025 8:45 AM CDT Temperature 36.2 C (97.2 F) 01/12/2025 1:55 PM CDT Respiratory Rate 20 01/12/2025 2:25 PM CDT Oxygen Saturation 97% 01/17/2025 8:45 AM CDT Inhaled Oxygen Concentration - - Weight 91.2 kg (201 lb) 01/17/2025 8:45 AM CDT Height 170.2 cm (5' 7) 01/17/2025 8:45 AM CDT Body Mass Index 31.48 01/17/2025 8:45 AM CDT Plan of Treatment Health Maintenance Due Date Last Done Comments Depression Screening 1960 Hepatitis C Screening 1960 DTaP/Tdap/Td Vaccine (1 - Tdap) 1969 Hepatitis B Screening 1976 Pneumococcal vaccine 65+ (1 of 2 - PCV) 1977 Zoster Vaccine (1 of 2) 2008 Covid-19 Vaccine (5 - 2023-2 5 season) 2024 03/26/2022, 07/07/2021, 11/24/2020, Additional history exists Well Visit 65+ 09/01/2024 09/01/2023, 08/07, 10/28/2018 Influenza Vaccine (#1) 2025 07/11/2018, 2016 Osteoporosis Screening-Bone Density Scan 12/09/2025 2023, 08/06/2016, [...] Plan Chronic Care Management Worsening( 8:03 AM INTERNAL COMBUSTION ENGINE INSPECTOR) No Jessie Javier, DARRIN Note: Problem: Chronic Pain Goals: 1. Minimize further functional decline 2. Maximize quality of life 3. Control pain Strategies: - Activity/exercise program recommendation - Conservative stepwise pain medicine strategy with multi-disciplinary approach - Recommend healthy lifestyle strategies and compensatory methods as needed Medical Devices Implanted Type Area Elementary Principal Device Identifier Shelf Expiration Date Model / Serial / Lot Screw Left: Wrist [employer] [id number] System 6-12fr Mvp Venous Closure Vascade - [id number] Implanted:Qty: 1 on 05/24/2021 by Keshav Morgan MD PhD at [facility] [employer] 02/08/2023 800-612C-1 [id number] / / [id number] [employer] [id number] System 6-12fr Mvp Venous Closure Vascade - [id number] Implanted:Qty: 1 on 05/24/2021 by Keshav Morgan MD PhD at [facility] [employer] 01/31/2023 800-612C-1 [id number] / / [id number] [employer] [id number] System 6-12fr Mvp Venous Closure Vascade - [id number] Implanted:Qty: 1 on 05/24/2021 by Keshav Morgan MD PhD at [facility] [employer] 01/31/2023 800-612C-1 0U / / [id number] [employer] [id number] Device Closure Vascade Od5 Fr Femoral Artery - [id number] Implanted:Qty: 1 on 05/24/2021 by Keshav Morgan MD PhD at [facility] [employer] 02/21/2023 [id number] / / [id number] Procedures Procedure Name Priority Date/Time Associated Diagnosis Comments COLONOSCOPY 01/12/2025 1:14 PM CDT SCREENING MAMMOGRAM BILATERAL W RAPHAEL Schedule Routine, Read Routine (OP Routine) 12/23/2024 1:48 PM CDT Screening mammogram, encounter for DEXA AXIAL SKELETON BONE DENSITY 1 OR MORE SITES Schedule Routine, Read Routine (OP Routine) 2023 10:27 AM INTERNAL COMBUSTION ENGINE INSPECTOR Osteoporosis, unspecified osteoporosis type, unspecified pathological fracture presence from Last 3 Months or Most Recently Relevant to Health Maintenance Results * Colonoscopy (01/12/2025 1:14 PM CDT) Anatomical Region Laterality Modality Other Narrative Procedure Note Chi Kaur MD PhD - 01/12/2025 1:14 PM CDT ENDOSCOPY LAB Patient Name: Nancy Estrada Procedure Date: 01/12/2025 1:14 PM Date of : 1960 Admit Type: Outpatient Age: 64 Gender: Female Attending MD: Chi Kaur M.D. Room: [facility] ENDOSCOPY ROOM 01 Note Status: Finalized Procedure: [...] The scope was passed under direct vision.The [id number] was introduced through the anusand advanced to [...] to prior imaging studies performed at [facility] on 08/06/2016, 09/25/2018 and 07/27/2020. The [...] to prior imaging studies performed at [facility] on 08/06/2016, 09/25/2018 and 07/27/2020. The breasts are almost entirely fatty. There is no suspicious abnormality in either breast. Impression: There is no mammographic evidence of malignancy. Annual screening mammography is recommended. OVERALL FINAL ASSESSMENT: BI-RADS CATEGORY 1: Negative. us Self Screening Mammogram IMG MAMMO PROCEDURES Fi nal Result * Dexa Axial Skeleton Bone Density 1 Or 2 Site (2023 10:27 AM INTERNAL COMBUSTION ENGINE INSPECTOR) Anatomical Region Laterality Modality Body N/A Mammography 2023 8:27 PM INTERNAL COMBUSTION ENGINE INSPECTOR Narrative 2023 8:28 PM INTERNAL COMBUSTION ENGINE INSPECTOR EXAM DESCRIPTION: DEXA AXIAL SKELETON BONE DENSITY 1 OR MORE SITES REASON FOR STUDY: 62 y/o year old F with given history of: Osteoporosis Postmenopausal Elementary Principal/Model: [employer] A (S/N [id number]) CLINICAL INFORMATION: Current height: 67 inches Maximum [...] Murphy Sanchez M.D. MF: DONTA Report ID: [id number] Reading Location: [place] [address] Procedure Note Murphy Sanchez MD - 2023 EXAM DESCRIPTION: DEXA AXIAL SKELETON BONE DENSITY 1 OR MORE SITES REASON FOR STUDY: 62 y/o year old F with given history of:Osteoporosis Postmenopausal Elementary Principal/Model: [employer] A (S/N [id number]) CLINICAL INFORMATION: Current height: 67 inches Maximum [...] Murphy Sanchez M.D. MF: DONTA Report ID: [id number] Reading Location: [id number] us Susanna Marr MD IMG DXA PROCED URES Final Result from Last 3 Months or Most Recently Relevant to Health Maintenance Insurance MEDICARE [facility] CHOICE PLUS [address] [place] [id number] [facility] Address: [address] [address] [place] [address] [facility] [address] [place] [id number] Advance Directives For more information, please contact: [phone] * Full Code (Latest Code Status on File) Date Activated Date Inactivated Comments 01/12/2025 12:39 PM 01/12/2025 6:55 PM * Full Code Date Activated Date Inactivated Comments 12/07/2019 7:31 AM 12/07/2019 1:28 PM * Full Code Date Activated Date Inactivated Comments 03/08/2019 6:40 PM 03/09/2019 10:19 PM * Full Code Date Activated Date Inactivated Comments 07/11/2018 8:02 PM 07/14/2018 4:16 PM Care Teams Assistant Maintenance Manager Relationship Specialty Start Date End Date Ford Mar MD [address] [facility] [address] [place] [address] INTER[address] MEDICINE [place] [id number] PCP - General 01/03/17 Zenaida Curry Physical Therapist Physical Therapy 03/17/18 Murphy Nguyen MD Anesthesiologist Pain Management 03/17/18
--- OUTSIDE RECORDS SUMMARY | 2025-05-19 15:45 | XMS_ITS | Encounter Summary ---
Author Organization [facility] Address [address] [place] [address] Phone Care Team Providers Care Earth Moving Technician Name Role Phone Ford Mar MD Primary Care Provider [phone] Zenaida Curry Unavailable Unavailable Murphy Nguyen MD Unavailable [phone] Encounter Details Date Type Department Care Team [...] on file Legal Sex Female 11:58 PM SEEDLING PULLER Gender Identity Not on file Sexual Orientation Not on file documented as of this encounter Plan of Treatment Not on file documented as of this encounter Goals Goal Patient Goal Type Associated Problems Recent Progress Patient-Stated? Author CCM Chronic Pain Care Plan Chronic Care Management Worsening( 8:03 AM SEEDLING PULLER) Jessie Santana RN Note: Problem: Chronic Pain [...] COVID: Suspected 09/11/2023 09/11/2023 09/11/2023 12:05 PM SEEDLING PULLER documented as of this encounter Care Teams Earth Moving Technician Relationship Specialty Start Date End Date Ford Mar MD [address] [place] [address] PCP - General 01/03/17 Zenaida Curry Physical Therapist Physical Therapy 03/17/18 Murphy Nguyen MD Anesthesiologist Pain Management 03/17/18 documented as of this encounter
--- OUTSIDE RECORDS SUMMARY | 2025-05-19 15:45 | XMS_ITS | Encounter Summary ---
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 Author CCM Chronic Pain Care Plan Chronic Care Management Worsening( 8:03 AM SCHOOL BUS AIDE) Jessie Santana RN Note: Problem: Chronic Pain [...] COVID: Suspected 09/11/2023 09/11/2023 09/11/2023 12:05 PM SCHOOL BUS AIDE documented as of this encounter Care Teams Medical Services Assistant Relationship Specialty Start Date End Date Ford Mar MD [address] [place] [place]ICINE [place] [id number] PCP - General 01/03/17 Zenaida Curry Physical Therapist Physical Therapy 03/17/18 Murphy Nguyen MD Anesthesiologist Pain Management 03/17/18 documented as of this encounter
--- OUTSIDE RECORDS SUMMARY | 2025-05-19 15:45 | XMS_ITS | Encounter Summary ---
Author Organization [facility] Address [address] [place] [address] Phone Care Team Providers Care Customer Service Administrator Name Role Phone Ford Mar MD Primary Care Provider [phone] Zenaida Curry Unavailable Unavailable Murphy Nguyen MD Unavailable [phone] Encounter Details Date Type Department Care Team [...] on file Legal Sex Female 11:58 PM ROLLER MAN Gender Identity Not on file Sexual Orientation Not on file documented as of this encounter Plan of Treatment Not on file documented as of this encounter Goals Goal Patient Goal Type Associated Problems Recent Progress Patient-Stated? Author CCM Chronic Pain Care Plan Chronic Care Management Worsening( 8:03 AM ROLLER MAN) Jessie Santana RN Note: Problem: Chronic Pain [...] COVID: Suspected 09/11/2023 09/11/2023 09/11/2023 12:05 PM ROLLER MAN documented as of this encounter Care Teams Customer Service Administrator Relationship Specialty Start Date End Date Ford Mar MD [address] [place] [address] PCP - General 01/03/17 Zenaida Curry Physical Therapist Physical Therapy 03/17/18 Murphy Nguyen MD Anesthesiologist Pain Management 03/17/18 documented as of this encounter
[2025-05-19 16:18] LABS: Hematocrit 40.9 % (37.0-47.0); Hemoglobin 14.2 g/dL (12.0-15.0); Immature Granulocyte Percent A 0.3 % (0-0.5); Lymphocytes Absolute Auto 2.33 K/mm3 (0.9-3.2); Mean Corpuscular HGB Conc 34.7 g/dl (32-36); Mean Corpuscular Hemoglobin 31.6 pg (26-34); Mean Corpuscular Volume 91.1 fl (80-100); Nucleated Red Blood Cells Absolute Auto 0.000 K/mm3 (0.0-0.012); Nucleated Red Blood Cells Perc 0.0 % (0.0-0.2); Platelet Count Result 213 k/mm3 (150-375); Red Blood Count 4.49 M/mm3 (4.2-5.4); White Blood Count 7.6 K/mm3 (4.5-10.0)
[2025-05-19 16:33] LABS: Alanine Aminotransferase 32 U/L (6-35); Albumin Level 4.5 g/dL (3.5-5.1); Alkaline Phosphatase 77 U/L (38-126); Anion Gap 7 mmol/L (4-12); Aspartate Amino Transferase 34 U/L (14-36); Bilirubin,Total 0.6 mg/dL (0.2-1.3); Blood Urea Nitrogen 22 mg/dL (7-17); Calcium 9.7 mg/dL (8.4-10.2); Carbon Dioxide 26 mmol/L (22-30); Chloride 97 mmol/L (98-107); Cholesterol 115 mg/dL (0-200); Estimated Glomerular Filt Rate > 60; Glucose 99 mg/dL (65-110); HDL Direct 62 mg/dL; Potassium 3.9 mmol/L (3.4-5.0); Sodium 130 mmol/L (137-145); Total Protein 7.4 g/dL (6.3-8.2); Triglycerides 93 mg/dL (<150)
[2025-05-19 17:09] LABS: Thyroid Stimulating Hormone 0.125 uIU/mL (0.465-4.680)
[2025-05-19 17:53] LABS: Free T4 Free Thyroxine 1.86 ng/dL (0.78-2.19)
[2025-05-19 20:34] LABS: Hemoglobin A1C 5.7 % (<5.7)
== END 2025-05-19 15:39 | disposition home or self-care (01) ==
PROVIDERS: PCP Internal Medicine; Referring Provider Internal Medicine Cardiovascular Disease; Visit Provider Internal Medicine
DX: I25.10 Atherosclerotic heart disease of native coronary artery without angina pectoris (principal); Z79.899 Other long term (current) drug therapy; I10 Essential (primary) hypertension; E78.2 Mixed hyperlipidemia; E03.9 Hypothyroidism, unspecified; E55.9 Vitamin D deficiency, unspecified; R73.03 Prediabetes
CPT/HCPCS: 36415; 80053; 80061; 82306; 83036; 84439; 84443; 85025

== ENCOUNTER 2025-06-14 08:53 | Outpatient (CLI) | payer MEDICARE, SELFPAY ==
--- OUTSIDE RECORDS SUMMARY | 2025-06-14 09:36 | XMS_ITS | Encounter Summary ---
Author Organization [facility] Address [address] [place] [address] Phone Care Team Providers Care Solar Sales Specialist Name Role Phone Ford Mar MD Primary Care Provider [phone] Zenaida Curry Unavailable Unavailable Murphy Nguyen MD Unavailable [phone] Encounter Details Date Type Department Care Team [...] on file Legal Sex Female 11:58 PM BUSINESS PLANNING MANAGER Gender Identity Not on file Sexual Orientation Not on file documented as of this encounter Plan of Treatment Not on file documented as of this encounter Goals Goal Patient Goal Type Associated Problems Recent Progress Patient-Stated? Author CCM Chronic Pain Care Plan Chronic Care Management Worsening( 8:03 AM BUSINESS PLANNING MANAGER) Jessie Santana RN Note: Problem: Chronic Pain [...] COVID: Suspected 09/11/2023 09/11/2023 09/11/2023 12:05 PM BUSINESS PLANNING MANAGER documented as of this encounter Care Teams Solar Sales Specialist Relationship Specialty Start Date End Date Ford Mar MD [address] MEDIC[address] [place] [id number] PCP - General 01/03/17 Zenaida Curry Physical Therapist Physical Therapy 03/17/18 Murphy Nguyen MD Anesthesiologist Pain Management 03/17/18 documented as of this encounter
--- OUTSIDE RECORDS SUMMARY | 2025-06-14 09:36 | XMS_ITS | Encounter Summary ---
Author Organization [facility] Address [address] [place] [address] Phone Care Team Providers Care Mold Cooler Name Role Phone Ford Mar MD Primary Care Provider [phone] Zenaida Curry Unavailable Unavailable Murphy Nguyen MD Unavailable [phone] Encounter Details Date Type Department Care Team [...] on file Legal Sex Female 11:58 PM ENVIRONMENTAL RESEARCH PROJECT MANAGER Gender Identity Not on file Sexual Orientation Not on file documented as of this encounter Plan of Treatment Not on file documented as of this encounter Goals Goal Patient Goal Type Associated Problems Recent Progress Patient-Stated? Author CCM Chronic Pain Care Plan Chronic Care Management Worsening( 8:03 AM ENVIRONMENTAL RESEARCH PROJECT MANAGER) Jessie Santana RN Note: Problem: Chronic [...] COVID: Suspected 09/11/2023 09/11/2023 09/11/2023 12:05 PM ENVIRONMENTAL RESEARCH PROJECT MANAGER documented as of this encounter Care Teams Mold Cooler Relationship Specialty Start Date End Date Ford Mar MD [address] [place] [address] PCP - General 01/03/17 Zenaida Curry Physical Therapist Physical Therapy 03/17/18 Murphy Nguyen MD Anesthesiologist Pain Management 03/17/18 documented as of this encounter
--- OUTSIDE RECORDS SUMMARY | 2025-06-14 09:36 | XMS_ITS | Encounter Summary ---
Author Organization [facility] Address [address] [place] [address] Phone Care Team Providers Care Inspector Plating Name Role Phone Ford Mar MD Primary Care Provider [phone] Zenaida Curry Unavailable Unavailable Murphy Nguyen MD Unavailable [phone] Encounter Details Date Type Department Care Team [...] on file Legal Sex Female 11:58 PM BASTING MACHINE OPERATOR Gender Identity Not on file Sexual Orientation Not on file documented as of this encounter Plan of Treatment Not on file documented as of this encounter Goals Goal Patient Goal Type Associated Problems Recent Progress Patient-Stated? Author CCM Chronic Pain Care Plan Chronic Care Management Worsening( 8:03 AM BASTING MACHINE OPERATOR) Jessie Santana RN Note: Problem: [...] COVID: Suspected 09/11/2023 09/11/2023 09/11/2023 12:05 PM BASTING MACHINE OPERATOR documented as of this encounter Care Teams Inspector Plating Relationship Specialty Start Date End Date Ford Mar MD [address] [place] [address] PCP - General 01/03/17 Zenaida Curry Physical Therapist Physical Therapy 03/17/18 Murphy Nguyen MD Anesthesiologist Pain Management 03/17/18 documented as of this encounter
--- OUTSIDE RECORDS SUMMARY | 2025-06-14 09:36 | XMS_ITS | Encounter Summary ---
Author Organization [facility] Address [address] [place] [address] Care Team Providers Care Copy Messenger Name Role Phone Ford Mar MD Primary Care Provider [phone] Zenaida Curry Unavailable Unavailable Murphy Nguyen MD Unavailable [phone] Reason for Visit * Reason Onset Date Comments mri order 01/02/2022 Encounter Details Date Type Department Care Team (Late st Contact Info) Description 01/02/2022 Telephone [facility] [address] [facility] [place] Advanced [facility] [address] [place] [address] Amelia Winkler MD [address] [place] [address] mri order Social History Tobacco Use Types [...] on file Legal Sex Female 11:58 PM SOURCING CONSULTANT Gender Identity Not on file Sexual Orientation Not on file documented as of this encounter Plan of Treatment Not on file documented as of this encounter Goals Goal Patient Goal Type Associated Problems Recent Progress Patient-Stated? Author CCM Chronic Pain Care Plan Chronic Care Management Worsening( 8:03 AM SOURCING CONSULTANT) No Jessie Javier RN Note: Problem: Chronic [...] COVID: Suspected 09/11/2023 09/11/2023 09/11/2023 12:05 PM SOURCING CONSULTANT documented as of this encounter Care Teams Copy Messenger Relationship Specialty Start Date End Date Ford Mar MD [address] INTER[address] MEDICINE [place] [id number] PCP - General 01/03/17 Zenaida Curry Physical Therapist Physical Therapy 03/17/18 Murphy Nguyen MD Anesthesiologist Pain Management 03/17/18 documented as of this encounter
--- OUTSIDE RECORDS SUMMARY | 2025-06-14 09:36 | XMS_ITS | Clinical Summary ---
Author Organization [facility] Address [address] [place] [address] Care Team Providers Care Auto Body Technician Name Role Phone Ford Mar MD Primary Care Provider [phone] Zenaida Curry Unavailable Unavailable Murphy Nguyen MD Unavailable [phone] Allergies No known active allergies Medications cholecalciferol (VITAMIN D3) 1,000 unit capsuleIndicati ons:Vitamin D Deficiency Take 2 capsules (2,000 Units total) by mouth 2 (two) times a day 03/23/20 19 Active rosuvastatin (CRESTOR) 10 mg tabletIndicatio ns:hyperlipidem ia Take 1 tablet (10 mg total) by mouth nightly CRUSH medication for 2 weeks. 03/09/20 19 Active multivitamin tabletIndicatio ns:supplement Take 1 tablet by mouth 3 (three) times a week 2-3 times per week 03/23/[address] (PROTONIX) 40 mg EC tabletIndicatio ns:Treatment of Non-Bleeding Gastric Disorder Take 1 tablet (40 mg total) by mouth daily 42 tablet 12/07/19 20 029 Active docusate sodium (COLACE) 100 mg capsuleIndicati ons:constipatio n Take 1 capsule (100 mg total) by mouth daily Active aspirin 325 mg tabletIndicatio ns:Myocardial Reinfarction Prevention Take 1 tablet (325 mg total) by mouth every morning Active Synthroid 112 mcg tabletIndicatio ns:hypothyroidi sm Take 1 tablet (112 mcg total) by mouth extrusion technician before breakfast 12/21/19 23 Active calcium carb/D3/magnesi um/zinc (calcium carb-D3-mag msw67-vphe) [phone] ul-kqpj-zx-mg tabletIndicatio ns:Vitamin Deficiency Take 1 tablet by mouth nightly Active folic acid (FOLVITE) 400 mcg tablet Take 1 tablet (400 mcg total) by mouth nightly Active PSYLLIUM HUSK ORALIndications :constipation Take by mouth daily Active carvediloL (COREG) [...] daily 90 tablet 3 05/28/20 24 Active isosorbide mononitrate ER (IMDUR) 30 mg 24 hr tablet Take 1 tablet (30 mg total) by mouth daily 90 tablet 1 12/16/19 25 Active losartan (COZAAR) 50 mg tablet Take 1 tablet (50 mg total) by mouth daily 90 tablet 3 12/30/19 25 026 Active hydroCHLOROthia zide (HYDRODIURIL) 25 mg tablet Take 1 tablet (25 mg total) by mouth daily 90 tablet 1 12/16/19 25 025 Discontinued hydroCHLOROthia zide (HYDRODIURIL) 25 mg tablet TAKE 1 TABLET BY MOUTH EVERY DAY 90 tablet 1 05/27/20 25 025 Discontinued(T herapy completed) Active Problems Patient Care Coordination No te [...] (02/04/2019): Added automatically from request for surgery [id number] Left hip pain 08/31/2018 Chronic bilateral low [...] curve, negative ESR/CRP - Trops: 1.41-->1.46-->1.20-->0.87 - [facility] 07/13: Mild plaques in RCA, nonlaminar flow. Bridging LAD. No flow impingement. - s/p ticagrelor loading 180 mg - d/c ticagrelor 90 BID for treatment of NSTEMI - d/c heparin gtt - LV ventriculogram WNL. nml EF, no WMA - cards c/s, appreciate recs - [facility] today - ESR, CRP WNL - ASA [...] Encounters Date Type Department Care Team Description 06/08/2025 Telephone [facility] [address] [facility] Medical Office Building [address] [place] [address] Celestine Escobar MD 06/03/2025 Telephone [facility] [address] [facility] Medicine 8th [place] [address] [place] [address] Celestine Escobar MD 05/31/2025 Orders Only IM CARDIOLOGY Scanning, Provider 05/17/2025 Orders Only [facility] [address] [facility] 8th [place] [address] [place] [address] Celestine Escobar MD Coronary artery disease involving [place] heart without angina pectoris, unspecified vessel or [...] TW Conv) Coronary artery disease Mother Daisy murphyy artery disease; Hypertension Mother Hypertension; Lymphoma Sister [...] on file Legal Sex Female 11:58 PM LEATHER CURRIER Gender Identity Not on file Sexual Orientation Not on file Obstetrics History Para Term AB IAB SAB Ectopic Multiple Livin g Live Births 4 3 3 1 1 2 2 Date Outcome GA Total Labor Labor/2nd/3rd Weight Sex Type Anes PTL Kennedi A1 A5 Name Clin 1987 Term M Vag-S pont Living 1990 SAB 1991 Term F Vag-S pont Complications:None 1992 Term [...] 1977 Zoster Vaccine (1 of 2) 2008 Well Visit 65+ 09/01/2024 09/01/2023, 08/07, 10/28/2018 Covid-19 Vaccine (5 - 2024-2 6 season) 2025 03/26/2022, 07/07/2021, 11/24/2020, Additional history exists Influenza Vaccine (#1) 2025 8, 11/16/2016, 07/25/2013 Osteoporosis Screening-Bone Density Scan 12/09/2025 2023, 08/06/2016, [...] Plan Chronic Care Management Worsening( 8:03 AM LEATHER CURRIER) Jessie Santana, RN Note: Problem: Chronic Pain Goals: 1. Minimize further functional decline 2. Maximize quality of life 3. Control pain Strategies: - Activity/exercise program recommendation - Conservative stepwise pain medicine strategy with multi-disciplinary approach - Recommend healthy lifestyle strategies and compensatory methods as needed Medical Devices Implanted Type Area Homebound Teacher Device Identifier Shelf Expiration Date Model / Serial / Lot Screw Left: Wrist [employer] [id number] System 6-12fr Mvp Venous Closure Vascade - [id number] Implanted:Qty: 1 on 05/24/2021 by Keshav Morgan MD PhD at [facility] [employer] 02/08/2023 800-612C-1 0U / / [id number] [employer] [id number] System 6-12fr Mvp Venous Closure Vascade - [id number] Implanted:Qty: 1 on 05/24/2021 by Keshav Morgan MD PhD at [facility] 01/31/2023 800-612C-1 0U / / [id number] [employer] [id number] System 6-12fr Mvp Venous Closure Vascade - [id number] Implanted:Qty: 1 on 05/24/2021 by Keshav Morgan MD PhD at [facility] [employer] 01/31/2023 800-612C-1 0U / / [id number] 5C [employer] [id number] Device Closure Vascade Od5 Fr Femoral Artery - [id number] Implanted:Qty: 1 on 05/24/2021 [facility] 02/21/2023 700-500DX- 05U / / [id number] 20A Procedures Procedure Name Priority Date/Time Associated Diagnosis Comments SCAN - LABS 05/31/2025 COLONOSCOPY 01/12/2025 1:14 PM CDT SCREENING MAMMOGRAM BILATERAL W RAPHAEL Schedule Routine, Read Routine (OP Routine) 12/23/2024 1:48 PM CDT Screening mammogram, encounter for DEXA AXIAL SKELETON BONE DENSITY 1 OR MORE SITES Schedule Routine, Read Routine (OP Routine) 2023 10:27 AM LEATHER CURRIER Osteoporosis, unspecified osteoporosis type, unspecified pathological fracture presence from Last 3 Months or Most Recently Relevant to Health Maintenance Results * SCAN - LABS (05/31/2025) us Provider Scanning Final Result * Colonoscopy (01/12/2025 1:14 PM CDT) Anatomical Region Laterality Modality Other Narrative Procedure Note Chi Kaur MD PhD - 01/12/2025 1:14 PM CDT ENDOSCOPY LAB Patient Name: Nancy Estrada Procedure Date: 01/12/2025 1:14 PM Date of : 1960 Admit Type: Outpatient Age: 64 Gender: Female Attending MD: Chi Kaur M.D. Room: [facility] ENDOSCOPY ROOM 01 Note Status: Finalized Procedure: [...] The scope was passed under direct vision.The [id number] was introduced through the anusand advanced to [...] compared to prior imaging studies performed at [facility] on 08/06/2016, 09/25/2018 and 07/27/2020. The [...] compared to prior imaging studies performed at [facility] on 08/06/2016, 09/25/2018 and 07/27/2020. The breasts are almost entirely fatty. There is no suspicious abnormality in either breast. Impression: There is no mammographic evidence of malignancy. Annual screening mammography is recommended. OVERALL FINAL ASSESSMENT: BI-RADS CATEGORY 1: Negative. us Self Screening Mammogram IMG MAMMO PROCEDURES Fi nal Result * Dexa Axial Skeleton Bone Density 1 Or 2 Site (2023 10:27 AM LEATHER CURRIER) Anatomical Region Laterality Modality Body N/A Mammography 2023 8:27 PM LEATHER CURRIER Narrative 2023 8:28 PM LEATHER CURRIER EXAM DESCRIPTION: DEXA AXIAL SKELETON BONE DENSITY 1 OR MORE SITES REASON FOR STUDY: 62 y/o year old F with given history of: Osteoporosis Postmenopausal Homebound Teacher/Model: [employer]idex A (S/N [id number]) CLINICAL INFORMATION: Current height: 67 inches Maximum [...] Murphy Sanchez M.D. MF: DONTA Report ID: [id number] Reading Location: [address] Note Murphy Sanchez MD - 2023 EXAM DESCRIPTION: DEXA AXIAL SKELETON BONE DENSITY 1 OR MORE SITES REASON FOR STUDY: 62 y/o year old F with given history of:Osteoporosis Postmenopausal Homebound Teacher/Model: Confidex A (S/N [id number]) CLINICAL INFORMATION: Current height: 67 inches Maximum [...] Murphy Sanchez M.D. MF: DONTA Report ID: [id number] Reading Location: [place] [address] us Susanna Marr MD IMG DXA PROCED URES Final Result from Last 3 Months or Most Recently Relevant to Health Maintenance Insurance MEDICARE [facility] [place] [address] CHOICE PLUS MEDICARE [facility] Advance Directives For more information, please contact: [phone] * Full Code (Latest Code Status on File) Date Activated Date Inactivated Comments 01/12/2025 12:39 PM 01/12/2025 6:55 PM * Full Code Date Activated Date Inactivated Comments 12/07/2019 7:31 AM 12/07/2019 1:28 PM * Full Code Date Activated Date Inactivated Comments 03/08/2019 6:40 PM 03/09/2019 10:19 PM * Full Code Date Activated Date Inactivated Comments 07/11/2018 8:02 PM 07/14/2018 4:16 PM Care Teams Auto Body Technician Relationship Specialty Start Date End Date Ford Mar MD [address] [place] [address] PCP - General 01/03/17 Zenaida Curry Physical Therapist Physical Therapy 03/17/18 Murphy Nguyen MD Anesthesiologist Pain Management 03/17/18
--- OUTSIDE RECORDS SUMMARY | 2025-06-14 09:36 | XMS_ITS | Encounter Summary ---
Author Organization [facility] Healthcare Address [address] [place] [address] Care Team Providers Care Financial Secretary Name Role Phone Ford Mar MD Primary Care Provider [phone] Zenaida Curry Unavailable Unavailable Murphy Nguyen MD Unavailable [phone] Encounter Details Date Type Department Care Team (Late st Contact Info) Description 03/09/2019 Documentation [facility] Case Management [address] [place] [address] Yohana Avitia RN Social History Tobacco Use Types Packs/Day Years Used Date Smoking Tobacco: Former Cigarettes 0.3 10 1 999 - 2008 Smokeless Tobacco: Never Alcohol Use Standard Drinks/Week Comments Yes 14 (1 standard drink = 0.6 oz pu re alcohol) Comments No Sex and Gender Information Value Date Recorded Sex Assigned at Not on file Legal Sex Female 11:58 PM APPLICATION SPECIALIST Gender Identity Not on file Sexual [...] COVID: Suspected 09/11/2023 09/11/2023 09/11/2023 12:05 PM APPLICATION SPECIALIST documented as of this encounter Care Teams Financial Secretary Relationship Specialty Start Date End Date Ford Mar MD [address] [place] [address] PCP - General 01/03/17 Zenaida Curry Physical Therapist Physical Therapy 03/17/18 Murphy Nguyen MD Anesthesiologist Pain Management 03/17/18 documented as of this encounter
--- OUTSIDE RECORDS SUMMARY | 2025-06-14 09:36 | XMS_ITS | Encounter Summary ---
Author Organization [facility] Address [address] [place] [address] Phone Care Team Providers Care Computer Numerical Control Machinist Name Role Phone Ford Mar MD Primary Care Provider [phone] Zenaida Curry Unavailable Unavailable Murphy Nguyen MD Unavailable [phone] Encounter Details Date Type Department Care Team (Late st Contact Info) Description 01/06/2024 Orders Only [facility] Medicine Ophthalmology [address] [facility] 6th [place] [address] Bryant Arnold MD [address] [facility] [address] [place] [address] Ptosis of eyelid, unspecified laterality [...] on file Legal Sex Female 11:58 PM MEDICAL SCREENER Gender Identity Not on file Sexual Orientation Not on file documented as of this encounter Plan of Treatment Not on file documented as of this encounter Goals Goal Patient Goal Type Associated Problems Recent Progress Patient-Stated? Author CCM Chronic Pain Care Plan Chronic Care Management Worsening( 8:03 AM MEDICAL SCREENER) No Jessie Javier RN Note: Problem: Chronic [...] Primary documented in this encounter Care Teams Computer Numerical Control Machinist Relationship Specialty Start Date End Date Ford Mar MD [address] [facility] [address] [place] [address] PCP - General 01/03/17 Zenaida Curry Physical Therapist Physical Therapy 03/17/18 Murphy Nguyen MD Anesthesiologist Pain Management 03/17/18 documented as of this encounter
[2025-06-14 10:50] LABS: Free T4 Free Thyroxine 1.35 ng/dL (0.78-2.19)
[2025-06-14 10:57] LABS: Anion Gap 10 mmol/L (4-12); Blood Urea Nitrogen 14 mg/dL (7-17); Calcium 9.7 mg/dL (8.4-10.2); Carbon Dioxide 23 mmol/L (22-30); Chloride 99 mmol/L (98-107); Estimated Glomerular Filt Rate > 60; Glucose 92 mg/dL (65-110); Potassium 4.9 mmol/L (3.4-5.0); Sodium 132 mmol/L (137-145)
[2025-06-14 11:15] LABS: Thyroid Stimulating Hormone 1.340 uIU/mL (0.465-4.680)
== END 2025-06-14 08:54 | disposition home or self-care (01) ==
PROVIDERS: PCP Internal Medicine; Referring Provider Internal Medicine Cardiovascular Disease; Visit Provider Internal Medicine
DX: I25.10 Atherosclerotic heart disease of native coronary artery without angina pectoris (principal); E03.9 Hypothyroidism, unspecified
CPT/HCPCS: 36415; 80048; 84439; 84443

== ENCOUNTER 2025-06-24 10:39 | Outpatient (CLI) | payer MEDICARE, SELFPAY ==
--- OUTSIDE RECORDS SUMMARY | 2025-06-24 10:45 | XMS_ITS | Clinical Summary ---
Author Organization [facility] Address [address] [place] [address] Care Team Providers Care Biology Tutor Name Role Phone Ford Mar MD Primary Care Provider [phone] Zenaida Curry Unavailable Unavailable Murphy Nguyen MD Unavailable [phone] Allergies No known active allergies Medications cholecalciferol [...] 1 tablet (112 mcg total) by mouth retail sales specialist before breakfast 12/21/19 23 Active calcium carb/D3/magnesi um/zinc (calcium carb-D3-mag atm93-pcgd) [phone] xu-tjqi-zs-mg tabletIndicatio ns:Vitamin Deficiency Take 1 tablet by [...] to 3 doses total 100 tablet 05/24/20 24 Active ezetimibe (ZETIA) 10 mg tablet Take 1 tablet (10 mg total) by mouth daily 90 tablet 3 05/28/20 24 Active losartan (COZAAR) 50 mg tablet Take 1 tablet (50 mg total) by mouth daily 90 tablet 3 12/30/19 026 Active amLODIPine (NORVASC) 5 mg tablet Take 1 tablet (5 mg total) by mouth daily 30 tablet 06/15/20 026 Active isosorbide mononitrate ER (IMDUR) 30 mg 24 hr tablet TAKE 1 TABLET BY MOUTH EVERY DAY 90 tablet 1 06/21/20 25 Active hydroCHLOROthia zide (HYDRODIURIL) 25 mg tablet Take 1 tablet (25 mg total) by mouth daily 90 tablet 1 12/16/19 25 025 Discontinued isosorbide mononitrate ER (IMDUR) 30 mg 24 hr tablet Take 1 tablet (30 mg total) by mouth daily 90 tablet 1 12/16/19 25 025 Discontinued hydroCHLOROthia zide (HYDRODIURIL) 25 mg tablet TAKE 1 TABLET BY MOUTH EVERY DAY 90 tablet 05/27/20 25 025 Discontinued(T herapy completed) Active [...] (02/04/2019): Added automatically from request for surgery [id number] Left hip pain 08/31/2018 Chronic bilateral low [...] curve, negative ESR/CRP - Trops: 1.41-->1.46-->1.20-->0.87 - [facility] 07/13: Mild plaques in RCA, nonlaminar flow. Bridging LAD. No flow impingement. - s/p ticagrelor loading 180 mg - d/c ticagrelor 90 BID for treatment of NSTEMI - d/c heparin gtt - LV ventriculogram WNL. nml EF, no WMA - cards c/s, appreciate recs - [facility] today - ESR, CRP WNL - [...] Encounters Date Type Department Care Team Description 06/24/2025 Telephone [facility] Cardiology [address] [facility] 8th [place] [address] [place] [address] Celestine Escobar MD 06/17/2025 Telephone [facility] Cardiology [address] [place] [address] [place] [address] Celestine Escobar MD 06/15/2025 Orders Only [facility] Cardiology [address] [facility] Office Building [address] [place] [address] Celestine Escobar MD 06/14/2025 Orders Only [facility] Scanning, Provider 06/08/2025 Telephone [facility] Cardiology [address] [facility] Office Building [address] [place] [address] Celestine Escobar MD 06/03/2025 Telephone [facility] Cardiology [address] [place] [address] [place] [address] Celestine Escobar MD 05/31/2025 Orders Only [facility] Scanning, Provider 05/17/[address] [facility] Medicine Cardiology [address] [place] [address] [place] [address] Celestine Escobar MD Coronary artery disease involving resighini heart without angina pectoris, unspecified vessel or [...] on file Legal Sex Female 11:58 PM CIGARETTE MACHINE OPERATOR Gender Identity Not on file [...] Plan Chronic Care Management Worsening( 8:03 AM CIGARETTE MACHINE OPERATOR) Jessie Santana RN Note: Problem: Chronic Pain Goals: 1. Minimize further functional decline 2. Maximize quality of life 3. Control pain Strategies: - Activity/exercise program recommendation - Conservative stepwise pain medicine strategy with multi-disciplinary approach - Recommend healthy lifestyle strategies and compensatory methods as needed Medical Devices Implanted Type Area Whiskey Filterer Device Identifier Shelf Expiration Date Model / Serial / Lot Screw Left: Wrist [employer] [id number] System 6-12fr Mvp Venous Closure Vascade - [id number] Implanted:Qty: 1 on 05/24/2021 by Keshav Morgna MD PhD at [facility] [employer] 02/08/2023 800-612C-1 0U / / [id number] [employer] [id number] System 6-12fr Mvp Venous Closure Vascade - [id number] Implanted:Qty: 1 on 05/24/2021 by Keshav Morgan MD PhD at [facility] [employer] 01/31/2023 800-612C-1 0U / / [id number] [employer] [id number] System 6-12fr Mvp Venous Closure Vascade - [id number] Implanted:Qty: 1 on 05/24/2021 by Keshav Morgan MD PhD at [facility] [employer] 01/31/2023 800-612C-1 0U / / [id number] [employer] [id number] Device Closure Vascade Od5 Fr Femoral Artery - [id number] Implanted:Qty: 1 on 05/24/2021 by Keshav Morgan MD PhD at [facility] [employer] 02/21/2023 700-500DX- 05U / / [id number] 20A Procedures Procedure Name Priority Date/Time Associated Diagnosis Comments SCAN - LABS 06/14/2025 SCAN - LABS 05/31/2025 COLONOSCOPY 01/12/2025 1:14 PM CDT SCREENING MAMMOGRAM BILATERAL W RAPHAEL Schedule Routine, Read Routine (OP Routine) 12/23/2024 1:48 PM CDT Screening mammogram, encounter for DEXA AXIAL SKELETON BONE DENSITY 1 OR MORE SITES Schedule Routine, Read Routine (OP Routine) 2023 10:27 AM CIGARETTE MACHINE OPERATOR Osteoporosis, unspecified osteoporosis type, unspecified pathological fracture presence from Last 3 Months or Most Recently Relevant to Health Maintenance Results * SCAN - LABS (06/14/2025) us Provider Scanning Final Result * SCAN - LABS (05/31/2025) us Provider Scanning Final Result * Colonoscopy (01/12/2025 1:14 PM CDT) Anatomical Region Laterality Modality Other Narrative Procedure Note Chi Kaur MD PhD - 01/12/2025 1:14 PM CDT ENDOSCOPY LAB Patient Name: Nancy Estrada Procedure Date: 01/12/2025 1:14 PM Date of : 1960 Admit Type: Outpatient Age: 64 Gender: Female Attending MD: Chi Kaur M.D. Room: [facility] ENDOSCOPY ROOM 01 Note Status: Finalized [...] The scope was passed under direct vision.The [id number] was introduced through the anusand advanced to [...] compared to prior imaging studies performed at [facility] on 08/06/2016, 09/25/2018 and 07/27/2020. [...] compared to prior imaging studies performed at [facility] on 08/06/2016, 09/25/2018 and 07/27/2020. [...] 1 Or 2 Site (2023 10:27 AM CIGARETTE MACHINE OPERATOR) Anatomical Region Laterality Modality Body N/A Mammography 2023 8:27 PM CIGARETTE MACHINE OPERATOR Narrative 2023 8:28 PM CIGARETTE MACHINE OPERATOR EXAM DESCRIPTION: DEXA AXIAL SKELETON BONE DENSITY 1 OR MORE SITES REASON FOR STUDY: 62 y/o year old F with given history of: Osteoporosis Postmenopausal Whiskey Filterer/Model: [employer] A (S/N [id number]) CLINICAL INFORMATION: Current height: 67 inches Maximum [...] Murphy Sanchez M.D. MF: DONTA Report ID: [id number] Reading Location: [id number] Procedure Note Murphy Sanchez MD - 2023 EXAM DESCRIPTION: DEXA AXIAL SKELETON BONE DENSITY 1 OR MORE SITES REASON FOR STUDY: 62 y/o year old F with given history of:Osteoporosis Postmenopausal Whiskey Filterer/Model: [employer]fire A (S/N [id number]) CLINICAL INFORMATION: Current height: 67 inches Maximum [...] Murphy Sanchez M.D. MF: DONTA Report ID: [id number] Reading Location: [id number] us Susanna Marr MD IMG DXA PROCED URES Final Result from Last 3 Months or Most Recently Relevant to Health Maintenance Insurance MEDICARE [facility] CHOICE PLUS [address] [place] [id number] MEDICARE [facility] Advance Directives For more information, please contact: [phone] * Full Code (Latest Code Status on File) Date Activated Date Inactivated Comments 01/12/2025 12:39 PM 01/12/2025 6:55 PM * Full Code Date Activated Date Inactivated Comments 12/07/2019 7:31 AM 12/07/2019 1:28 PM * Full Code Date Activated Date Inactivated Comments 03/08/2019 6:40 PM 03/09/2019 10:19 PM * Full Code Date Activated Date Inactivated Comments 07/11/2018 8:02 PM 07/14/2018 4:16 PM Care Teams Biology Tutor Relationship Specialty Start Date End Date Ford Mar MD [address] [place] [address] PCP - General 01/03/17 Zenaida Curry Physical Therapist Physical Therapy 03/17/18 Murphy Nguyen MD Anesthesiologist Pain Management 03/17/18
--- OUTSIDE RECORDS SUMMARY | 2025-06-24 10:45 | XMS_ITS | Encounter Summary ---
Author Organization [facility] Healthcare Address [address] [place] [address] Care Team Providers Care Crane Man Name Role Phone Ford Mar MD Primary Care Provider [phone] Zenaida Curry Unavailable Unavailable Murphy Nguyen MD Unavailable [phone] Reason for Visit * Reason Onset Date Comments mri order 01/02/2022 Encounter Details Date Type Department Care Team (Late st Contact Info) Description 01/02/2022 Telephone [facility] [address] [facility] [address] [place] [address] Amelia Winkler MD [address] [place] [address] mri order Social History Tobacco Use Types [...] on file Legal Sex Female 11:58 PM RADIO RIGGER Gender Identity Not on file Sexual Orientation Not on file documented as of this encounter Plan of Treatment Not on file documented as of this encounter Goals Goal Patient Goal Type Associated Problems Recent Progress Patient-Stated? Author CCM Chronic Pain Care Plan Chronic Care Management Worsening( 8:03 AM RADIO RIGGER) No Jessie Javier RN Note: Problem: Chronic [...] COVID: Suspected 09/11/2023 09/11/2023 09/11/2023 12:05 PM RADIO RIGGER documented as of this encounter Care Teams Crane Man Relationship Specialty Start Date End Date Ford Mar MD [address] INTER[address] MEDICINE [place] [id number] PCP - General 01/03/17 Zenaida Curry Physical Therapist Physical Therapy 03/17/18 Murphy Nguyen MD Anesthesiologist Pain Management 03/17/18 documented as of this encounter
--- OUTSIDE RECORDS SUMMARY | 2025-06-24 10:45 | XMS_ITS | Encounter Summary ---
Author Organization [facility] Address [address] [place] [address] Phone Care Team Providers Care Shop Technician Name Role Phone Ford Mar MD Primary Care Provider [phone] Zenaida Curry Unavailable Unavailable Murphy Nguyen MD Unavailable [phone] Encounter Details Date Type Department Care Team [...] on file Legal Sex Female 11:58 PM FURNITURE RENTAL CONSULTANT Gender Identity Not on file Sexual Orientation Not on file documented as of this encounter Plan of Treatment Not on file documented as of this encounter Goals Goal Patient Goal Type Associated Problems Recent Progress Patient-Stated? Author CCM Chronic Pain Care Plan Chronic Care Management Worsening( 8:03 AM FURNITURE RENTAL CONSULTANT) Jessie Santana RN Note: Problem: Chronic Pain [...] COVID: Suspected 09/11/2023 09/11/2023 09/11/2023 12:05 PM FURNITURE RENTAL CONSULTANT documented as of this encounter Care Teams Shop Technician Relationship Specialty Start Date End Date Ford Mar MD [address] [place] [id number] PCP - General 01/03/17 Zenaida Curry Physical Therapist Physical Therapy 03/17/18 Murphy Nguyen MD Anesthesiologist Pain Management 03/17/18 documented as of this encounter
--- OUTSIDE RECORDS SUMMARY | 2025-06-24 10:45 | XMS_ITS | Encounter Summary ---
Author Organization [facility] Address [address] [place] [address] Phone Care Team Providers Care Slag Worker Name Role Phone Ford Mar MD Primary Care Provider [phone] Zenaida Curry Unavailable Unavailable Murphy Nguyen MD [...] on file Legal Sex Female 11:58 PM AIRCRAFT SERVICER Gender Identity Not on file Sexual Orientation Not on file documented as of this encounter Plan of Treatment Not on file documented as of this encounter Goals Goal Patient Goal Type Associated Problems Recent Progress Patient-Stated? Author CCM Chronic Pain Care Plan Chronic Care Management Worsening( 8:03 AM AIRCRAFT SERVICER) Jessie Santana RN Note: Problem: Chronic Pain [...] COVID: Suspected 09/11/2023 09/11/2023 09/11/2023 12:05 PM AIRCRAFT SERVICER documented as of this encounter Care Teams Slag Worker Relationship Specialty Start Date End Date Ford Mar MD [address] [place] [address] PCP - General 01/03/17 Zenaida Curry Physical Therapist Physical Therapy 03/17/18 Murphy Nguyen MD Anesthesiologist Pain Management 03/17/18 documented as of this encounter
--- OUTSIDE RECORDS SUMMARY | 2025-06-24 10:45 | XMS_ITS | Encounter Summary ---
Author Organization [facility] Address [address] [place] [address] Care Team Providers Care Passenger Car Conductor Name Role Phone Ford Mar MD Primary Care Provider [phone] Zenaida Curry Unavailable Unavailable Murphy Nguyen MD Unavailable [phone] Encounter Details Date Type Department Care Team (Late st Contact Info) Description 03/09/[address] 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 Gender Identity Not on file Sexual Orientation Not on file documented as of this encounter Miscellaneous Notes * Plan of Care - Yohana vAitia RN - 03/09/2019 1:14 PM CDT Attempted [...] COVID: Suspected 09/11/2023 09/11/2023 09/11/2023 12:05 PM TUNNEL HEADING INSPECTOR documented as of this encounter Care Teams Passenger Car Conductor Relationship Specialty Start Date End Date Ford Mar MD [address] [place] [address] PCP - General 01/03/17 Zenaida Curry Physical Therapist Physical Therapy 03/17/18 Murphy Nguyen MD Anesthesiologist Pain Management 03/17/18 documented as of this encounter
--- OUTSIDE RECORDS SUMMARY | 2025-06-24 10:45 | XMS_ITS | Encounter Summary ---
Author Organization [facility] Address [address] [place] [address] Phone Care Team Providers Care State Epidemiologist Name Role Phone Ford Mar MD Primary Care Provider [phone] Zenaida Curry Unavailable Unavailable Murphy Nguyen MD Unavailable [phone] Encounter Details Date Type Department Care Team (Late st Contact Info) Description 06/24/2025 Telephone [facility] Medicine Cardiology [address] [facility] Advanced Medicine 8th [place] [address] [place] [address] Celestine Escobar MD [address] [facility] [address] [place], [place] [id number] Social History Tobacco Use Types Packs/Day Years [...] on file 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 Will reach out to inform labsare there * Telephone Encounter - Isi Tejada RN - 06/24/2025 10:07 AM CDT S/w Patient access to confirm fax # Refaxed labs and confirmed they are there. * Telephone Encounter - Shanna Gabriel - 06/24/2025 8:16 AM CDT [facility] lab calling stating pt is there for labs but there are no orders please fax to [phone] documented in this encounter Plan of Treatment Not on file documented as of this encounter Goals Goal Patient Goal Type Associated Problems Recent Progress Patient-Stated? Author CCM Chronic Pain Care Plan Chronic Care Management Worsening( 8:03 AM TELEGRAPH OPERATOR) No Jessie Javier, DARRIN Note: Problem: Chronic Pain Goals: 1. Minimize further functional decline 2. Maximize quality of life 3. Control pain Strategies: - Activity/exercise program recommendation - Conservative stepwise pain medicine strategy with multi-disciplinary approach - Recommend healthy lifestyle strategies and compensatory methods as needed documented as of this encounter Visit Diagnoses Not on filedocumented in this encounter Care Teams State Epidemiologist Relationship Specialty Start Date End Date Ford Mar MD [address] [facility] [address] [facility] [address] [place] [id number] PCP - General 01/03/17 Zenaida Curry Physical Therapist Physical Therapy 03/17/18 Murphy Nguyen MD Anesthesiologist Pain Management 03/17/18 documented as of this encounter
--- OUTSIDE RECORDS SUMMARY | 2025-06-24 10:45 | XMS_ITS | Encounter Summary ---
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 Author CCM Chronic Pain Care Plan Chronic Care Management Worsening( 8:03 AM PROTECTIVE CLOTHING ISSUER) Jessie Santana RN Note: Problem: Chronic Pain [...] COVID: Suspected 09/11/2023 09/11/2023 09/11/2023 12:05 PM PROTECTIVE CLOTHING ISSUER documented as of this encounter Care Teams Night Monitor Relationship Specialty Start Date End Date Ford Mar MD [address] [place] [address] PCP - General 01/03/17 Zenaida Curry Physical Therapist Physical Therapy 03/17/18 Murphy Nguyen MD Anesthesiologist Pain Management 03/17/18 documented as of this encounter
[2025-06-24 11:18] LABS: Anion Gap 6 mmol/L (4-12); Blood Urea Nitrogen 14 mg/dL (7-17); Calcium 9.0 mg/dL (8.4-10.2); Carbon Dioxide 28 mmol/L (22-30); Chloride 100 mmol/L (98-107); Estimated Glomerular Filt Rate > 60; Glucose 97 mg/dL (65-110); Potassium 4.8 mmol/L (3.4-5.0); Sodium 134 mmol/L (137-145)
== END 2025-06-24 10:40 | disposition home or self-care (01) ==
PROVIDERS: PCP Internal Medicine; Visit Provider Internal Medicine Cardiovascular Disease
DX: I25.10 Atherosclerotic heart disease of native coronary artery without angina pectoris (principal); Z79.899 Other long term (current) drug therapy
CPT/HCPCS: 36415; 80048